=== PATIENT | male | born 1965 | race Two or more races ===

== ENCOUNTER 2020-05-20 09:40 | Outpatient (REF) | payer MEDICARE, MEDICAID, SELFPAY ==
[2020-05-20 10:53] LABS: Basophils Absolute Auto 0.1 X10*3/uL (0.0-0.2); Basophils Percent Auto 0.7 % (0-2); Eosinophils Absolute Auto 0.1 X10*3/uL (0.0-0.4); Eosinophils Percent Auto 1.8 % (0-4); Hematocrit 48.5 % (42-52); Hemoglobin 16.7 g/dl (14.0-18.0); Imm Gran Abs Auto 0.02 X10*3/uL (0.00-0.03); Imm Gran Pct Auto 0.3 % (0.0-0.4); MANUAL DIFF FLAG NO; Mean Corpuscular HGB Conc 34.4 g/dl (31.0-36.0); Mean Corpuscular Hemoglobin 31.9 pg (27.0-33.0); Mean Corpuscular Volume 92.7 fL (80-98); Mean Platelet Volume 8.4 fL (9.4-12.4); Monocytes Absolute Auto 0.8 X10*3/uL (0.1-1.2); Monocytes Percent Auto 10.5 % (2-11); Neutrophils Absolute Auto 4.3 X10*3/uL (2.0-8.3); Neutrophils Percent Auto 59.7 % (45-73); Platelet Count 320 X10*3/uL (160-400); Red Blood Count 5.23 X10*6/uL (4.60-5.80); Red Cell Distribution Width 11.9 % (11.0-16.0); White Blood Count 7.2 X10*3/uL (4.8-10.8)
[2020-05-20 11:23] LABS: Alanine Aminotransferase 49 U/L (0-40); Albumin Level 4.3 g/dL (3.5-5.0); Alkaline Phosphatase 65 U/L (39-117); Anion Gap 11 (12-20); Aspartate Amino Transferase 15 U/L (5-37); Bilirubin Total 1.6 mg/dL (0.0-1.0); Blood Urea Nitrogen 13 mg/dL (9-16); Calcium 9.2 mg/dL (8.4-10.2); Carbon Dioxide 28 mmol/L (22-29); Chloride 103 mmol/L (96-108); Cholesterol 214 mg/dL; Estimated Glomerular Filt Rate > 60; Glucose Fasting 93 mg/dL (60-99); HDL Cholesterol 41 mg/dL; LDL Cholesterol Calculated 147 mg/dl; Potassium 5.1 mmol/l (3.3-5.1); Sodium 137 mmol/L (135-145); Total Protein 7.4 g/dL (6.5-8.0); Triglycerides 132 mg/dL
== END 2020-05-20 09:41 | disposition home or self-care (01) ==
LOC: HO.LAB 09:40
PROVIDERS: Visit Provider Internal Medicine Medical Oncology
DX: E78.2 Mixed hyperlipidemia (principal); I10 Essential (primary) hypertension; E66.9 Obesity, unspecified
CPT/HCPCS: 36415; 80053; 80061; 85025

== ENCOUNTER 2021-10-20 11:28 | Emergency (ER) | payer MEDICARE, MEDICAID, SELFPAY ==
[2021-10-20 12:06] VITALS: BP 133/82; PULSE 67; RESP 18; TEMP 36.2; O2SAT 96; BMI 33.6
[2021-10-20] MEDS: Lidocaine HCl 1 % MPF 5 ML VIAL SUBCUT (13:10)
--- NOTE | 2021-10-20 14:23 | ED.EXTPRO ---
HPI - Extremity Problem General Chief complaint: Extremity Injury, Upper Stated complaint: Thumb lac Time Seen by Provider: 10/20/21 12:22 Source: patient Mode of arrival: ambulatory History of Present Illness HPI Narrative: 55-year-old male no significant past medical history presenting to the ED complaining of laceration to left thumb s/p cutting sheet rock with Creel Cleaner knife 1 hour [employer]. Tetanus out of date. Denies taking anticoagulation. Denies injury to the area, numbness, tingling, weakness, fever MD Complaint: extremity pain Onset (ago): hour(s) Pain Consistency: constant Related Data Allergies Allergy/AdvReac Type Severity Reaction Status Date / Time No Known Allergies Allergy Verified 10/20/21 12:06 Review of Systems Review of Systems: Constitutional: No Fever, No Chills ENT/Mouth: No Ear Pain, No Nasal Congestion, No Sinus Pain, No Hoarseness, No sore throat, No Rhinorrhea, No Swallowing Difficulty Cardiovascular: No Chest Pain, No SOB Respiratory: No Cough, No Sputum Gastrointestinal: No Nausea, No Vomiting, No Diarrhea, No Constipation, No Abdominal pain Genitourinary:, No Dysuria, No Urinary Frequency Musculoskeletal: + joint pain, No Myalgias, No Joint Swelling Skin: + Skin Lesions, No rash Neuro: No Weakness, No Numbness, No Paresthesias Yes all other systems are reviewed and are negative [facility] Past Medical History Attestation statement: The following information was validated with the patient. Social History Social History Advance Directives: No Advance Directives Information Provided: No Physical Exam Vital Signs: Vital Signs: Last Vital Signs Temp 97.1 F 10/20/21 12:06 Pulse 67 10/20/21 12:06 Resp 18 10/20/21 12:06 BP 133/82 10/20/21 12:06 Pulse Ox 96 10/20/21 12:06 BMI result Body Mass Index 33.6 Const: General: cooperative, healthy appearing and no acute distress Orientation/consciousness: patient oriented x3 Limitations: no limitations HEENT: Head: Yes normal to inspection and Yes atraumatic Ears: hearing grossly normal bilaterally General nose exam: Normal external nose present Face and sinus: Yes normal facial exam Eyes: General: appearance normal, both eyes and all related structures EOM: EOMs intact bilaterally Neck: Neck: Yes normal visual inspection and Yes no meningeal signs Resp: Effort & Inspection: normal respiratory effort and no respiratory distress Cardio: Rate: regular rate Peripheral pulses: radial pulses present and ulnar radial pulses present Skin: Other: 1.5cm laceration to left distal 5th digit lateral aspect. No nail involvement. Full range of motion intact. NV intact. Cap refill WNL Rashes: no rashes Neuro: General: patient oriented x3, tone normal and no meningeal signs Gait exam (Neuro): Normal gait present Extrem: General: Yes normal to inspection MDM - Extremity (Nontraumatic) MDM Narrative Medical decision making narrative: 55-year-old male no significant past medical history presenting to the ED complaining of laceration to left thumb s/p cutting sheet rock with Creel Cleaner knife 1 hour [employer]INTE[employer]. On exam vital signs stable, NAD/nontoxic, physical exam as above. Will repair laceration and update tetanus Medical Records Attestation: I reviewed the patient's medical records. Lab Data Attestation: I reviewed the patient's lab results. Procedures Laceration Laceration 1: Site: hand Side (If applicable): left Size (cm): 1.5 Description: linear Depth: simple, single layer Local Anesthetic: lidocaine 1% and other anesthetic (Digital block) Amount of anesthesia used (mL): 5 Pre-repair: wound explored and irrigated extensively Skin layer closed with: nylon Size (cm): 4-0 Number of sutures: 6 Technique: simple, interrupted Discharge Plan Discharge Clinical Impression: Finger laceration Patient Disposition: Home, Self-Care Instructions: Finger Laceration (ED) Additional Instructions: Return to any emergency department or urgent care in 7-10 days to have her sutures removed. Keep dry and clean. Apply bacitracin and or Neosporin If area begins look infected, is red, there is drainage from the area or you fever please return to the ED Your tetanus was updated today Referrals: Lisa Reynaga DO [Emergency Provider] - 1 week (Return to any emergency department or urgent care in 7-10 days to have her sutures removed) Interventions: ED Discharge Assessment Last Done: 10/20/21 15:18 Discharge Date/Time: 10/20/21 15:19
[2021-10-20] MEDS: Diphth,Pertus(ACell),Tet Adult 0.5 ML SYRINGE IM (15:07)
== END 2021-10-20 15:19 | disposition home or self-care (01) ==
PROVIDERS: Emergency Provider Emergency Medicine; PCP Internal Medicine Medical Oncology
DX: S61.012A Laceration without foreign body of left thumb without damage to nail, initial encounter (principal); S60.312A Abrasion of left thumb, initial encounter; W26.0XXA Contact with knife, initial encounter; Y93.9 Activity, unspecified; Y92.9 Unspecified place or not applicable; Y99.9 Unspecified external cause status
CPT/HCPCS: 12001; 90471; 90715; 99283; 99284

== ENCOUNTER 2023-01-07 08:47 | Outpatient (REF) | payer MEDICARE, MEDICAID, SELFPAY ==
[2023-01-07 08:59] LABS: MANUAL DIFF FLAG NO
[2023-01-07 09:34] LABS: Basophils Absolute Auto 0.1 X10*3/uL (0.0-0.2); Basophils Percent Auto 1.1 % (0-2); Eosinophils Absolute Auto 0.2 X10*3/uL (0.0-0.4); Eosinophils Percent Auto 2.4 % (0-4); Hematocrit 44.6 % (42.0-52.0); Hemoglobin 15.5 g/dl (14.0-18.0); Imm Gran Abs Auto 0.01 X10*3/uL (0.00-0.03); Imm Gran Pct Auto 0.2 % (0.0-0.4); Lymphocytes Absolute Auto 1.9 X10*3/uL (1.2-4.9); Mean Corpuscular HGB Conc 34.8 g/dl (31.0-36.0); Mean Corpuscular Hemoglobin 31.8 pg (27.0-33.0); Mean Corpuscular Volume 91.4 fL (80.0-98.0); Mean Platelet Volume 8.4 fL (9.4-12.4); Monocytes Absolute Auto 0.6 X10*3/uL (0.1-1.2); Neutrophils Absolute Auto 3.5 x10*3/uL (2.0-8.3); Neutrophils Percent Auto 56.3 % (45-73); Platelet Count 300 X10*3/uL (160-400); Red Blood Count 4.88 X10*6/uL (4.60-5.80); Red Cell Distribution Width 11.7 % (11.0-16.0); White Blood Count 6.2 X10*3/uL (4.8-10.8)
[2023-01-07 10:11] LABS: Alanine Aminotransferase 41 U/L (0-40); Albumin Level 4.2 g/dL (3.5-5.0); Alkaline Phosphatase 66 U/L (39-117); Anion Gap 10 (12-20); Aspartate Amino Transferase 12 U/L (5-37); Bilirubin Total 1.1 mg/dL (0.0-1.0); Blood Urea Nitrogen 11 mg/dL (9-16); Calcium 9.6 mg/dL (8.4-10.2); Carbon Dioxide 28 mmol/L (22-29); Chloride 106 mmol/L (96-108); Cholesterol 199 mg/dL; Estimated Glomerular Filt Rate > 60; Glucose Fasting 97 mg/dL (60-99); HDL Cholesterol 36 mg/dL; LDL Cholesterol Calculated 138 mg/dl; Potassium 4.5 mmol/L (3.3-5.1); Sodium 139 mmol/L (135-145); Total Protein 7.3 g/dL (6.5-8.0); Triglycerides 128 mg/dL
[2023-01-07 10:24] LABS: Prostate Specific Antigen 0.24 ng/mL (<0.05-4.0)
== END 2023-01-07 08:48 | disposition home or self-care (01) ==
LOC: HO.LAB 08:47
PROVIDERS: PCP Internal Medicine Medical Oncology; Visit Provider Internal Medicine Medical Oncology
DX: Z00.00 Encounter for general adult medical examination without abnormal findings (principal); Z12.5 Encounter for screening for malignant neoplasm of prostate; E78.2 Mixed hyperlipidemia; E66.9 Obesity, unspecified; I10 Essential (primary) hypertension
CPT/HCPCS: 36415; 80053; 80061; 84153; 85025

== ENCOUNTER → 2024-04-23 14:43 | Outpatient (REF) | payer OTHER, SELFPAY ==
--- NOTE | 2024-04-23 14:53 | HM_ITS ---
* Total monitoring time 7 days. * Underlying rhythm is sinus with an average rate of 63/Min. * Rare supraventricular ectopy. * Rare ventricular ectopy. One couplet. No significant runs. * No significant pauses or high-grade AV blocks. * No patient markers or diary events. MTDD
== END ==
LOC: HO.CARD 14:43
PROVIDERS: PCP Internal Medicine Medical Oncology; Visit Provider Internal Medicine Medical Oncology
DX: I48.0 Paroxysmal atrial fibrillation (principal)
CPT/HCPCS: 93242

== ENCOUNTER → 2024-04-23 14:53 | Outpatient (BNV) | payer OTHER, SELFPAY | PROVIDERS: PCP Internal Medicine Medical Oncology; Visit Provider Internal Medicine | DX: I47.10 Supraventricular tachycardia, unspecified (principal) | CPT/HCPCS: 93244 ==

== ENCOUNTER 2024-05-08 09:27 | Outpatient (AMB) | payer OTHER, SELFPAY ==
--- NOTE | 2024-05-08 09:28 | A.OFFVIS_ITS ---
Vital Signs 05/08/24 09:36 Height 5 ft 9 in Weight 230 lb BMI 34.0 BP 136/72 Blood Pressure Location Rt brachial Position Sitting Pulse 62 Intake Visit Reasons: Umbilical Hernia Intake Note: Patient referred by pcp Dr. Edge for umbilical hernia. Present for 13yrs. Patient c/o: bothersome when pressed on. Clinical Administrator Required: No Accompanied by: spouse Gisele Allergies No Known Allergies Allergy (Verified 05/08/24 09:33) HPI Comments Details: Patient presents for evaluation of a symptomatic enlarging umbilical hernia. He has had this for 20+ years time. His increasing in size. It was bothering him. He would like to have repaired. Otherwise patient tolerates his diet. He has regular bowel habits. He does moderate strenuous activities for employment. Chart was reviewed and patient evaluated [facility] Medical History (Updated 05/08/24 @ 09:34 by NESS Boyce) Appendicitis HTN (hypertension) Family History (Updated 05/08/24 @ 09:35 by NESS Boyce) Mother Lung cancer Social History (Updated 05/08/24 @ 09:36 by NESS Boyce) Alcohol intake: current Alcohol intake frequency: holidays/special occasions only Alcohol type: wine Patient Tobacco Use Status: Never used Tobacco Physical Exam Vital Signs: Last Vital Signs Pulse 62 05/08/24 09:36 BP 136/72 05/08/24 09:36 BMI result Body Mass Index 34.0 Chest Other: Chest breath sounds bilaterally, HS 1 in 2 GI Other: Patient was examined both supine and standing with Valsalva. Bilateral groin exam negative. Genitalia within normal limits. Abdomen moderately corpulent. Patient has roughly 3 cm irreducible umbilical hernia Assessment & Plan Assessment & Plan (1) Incarcerated umbilical hernia: Code(s): K42.0 - Umbilical hernia with obstruction, without gangrene Category: Surgical Plan Risks, benefits, and alternatives of open umbilical hernia repair with mesh were reviewed with the patient and included but not limited to bleeding, infection, recurrence, numbness, pain, scarring , bowel injury and the patient wishes to proceed. All questions answered. Arrangements were made for this. Coding Level of Care Code New Pt Level 5 (29132) Diagnoses Incarcerated umbilical hernia K42.0
[2024-05-08 09:36] VITALS: BP 136/72; PULSE 62; BMI 34.0
== END 2024-05-08 09:47 | disposition home or self-care (01) ==
PROVIDERS: PCP Internal Medicine Medical Oncology; Referring Provider Internal Medicine Medical Oncology; Visit Provider Surgery
DX: K42.0 Umbilical hernia with obstruction, without gangrene (principal)
CPT/HCPCS: 99204

== ENCOUNTER → 2024-05-08 09:27 | Outpatient (BNVA) | payer OTHER, SELFPAY | PROVIDERS: PCP Internal Medicine Medical Oncology; Referring Provider Internal Medicine Medical Oncology; Visit Provider Surgery | DX: K42.0 Umbilical hernia with obstruction, without gangrene (principal) | CPT/HCPCS: 99202 ==

== ENCOUNTER → 2024-06-07 09:43 | Outpatient (REF) | payer MEDICARE, MEDICAID, SELFPAY ==
--- OUTSIDE RECORDS SUMMARY | 2024-06-07 09:51 | XMS_ITS ---
Author Organization Byron Edge III, MD Address [address] [place] [address] Care Team Providers Care Enterprise Resource Analyst Name Role Phone Byron Edge Primary Care Provider Allergies Allergen (clinical drug ingredient) Drug/Non Drug Allergy documented on EMR Reaction Allergy Type Onset Date Status No Known Drug Allergy Unknown Drug Allergy Active Results Component Value Reference Range Notes URINE DIP STICK Reviewed date:04/18/2024 03:43:39 PM Interpretation: Performing Lab: Notes/Report: SG 1.020 1.005 - 1.025 pH 6.0 5.0 - 9.0 SHILO Negative Negative - NIT negative Negative - PRO 15 Negative - Trace GLU Negative Negative - KET 5 Negative - UBG 0.2 0.1 - 1.8 ANSON Negative 0.2 - 1.3 BLD Negative Negative - Reason For Referral Reason umbilical hernia Diagnosis 1 Umbilical hernia wit hout obstruction and without gangrene (K42.9) Referral Organization Byron Edge III, MD Referring Provider First Name Byron Referring Provider Last Name Kely Referring Provider Speciality Internal M edicine Referred Provider Jay Jay Juarez Referred Provider Specialty Thoracic Maryellen ayaan General Notes Crissy Bowie CMA 04/26 10:38:51 AM >ref/demo/progress note faxed to Dr Cancino office, Crissy Bowie CMA 05/03/2024 02:59:14 PM >called Dr Cancino office they stated pt has appt with Dr Juarez on 05/08/2024 Referral Priority Routine Referral Appointment Date 05/08/2024 REASON FOR VISIT Annual Exam Medications Medication SIG (Take, Route, Frequency, Duration) Notes Start Date End Date Status Metoprolol Succinate ER 100 MG 1 1/2 tablet Orally Once a day Active Ibuprofen 600 MG TAKE 1 TABLET BY ARISTEO TH THREE TIMES DAILY WITH FOOD OR MILK NEEDED Active Social History Tobacco Use: Social History Observation Description Date Details (start date - stop date) Never Smoker NA - NA Sex Assigned At : Social History Observation Description Sex Assigned At Male Tobacco Use/Smoking Question Answer Notes Patient is a nonsmoker Additional Findings: Tobacco Non-User Aggressive non-smoker Tobacco Control (Standard) Question Answer Notes Tobacco use: Nonsmoker Additional Findings: Tobacco non-user Aggressive nonsmoker AUDIT-C (Standard) Question Answer Notes Did you have a drink contain ing alcohol in the past year? Yes How often did you have six o r more drinks on one occasion in the past year? Less than monthly (1 point) How many drinks did you have on a typical day when you were drinking in the past year? 1 or 2 drinks (0 point) How often did you have a dri nk containing alcohol in the past year? Never (0 point) Points 1 Interpretation Negative Vital Signs Temperature 97.8 degrees Fahrenheit 04/18/20 24 Blood pressure systolic 139 mm Hg 04/18/20 24 Blood pressure diastolic 84 mm Hg 024 Heart Rate 62 /min 04/18/2024 Height 68 in 04/18/2024 Weight 230 lbs 04/18/2024 BMI 34.97 kg/m2 04/18/2024 Encounters Encounter Location Date Provider Diagnosis Byron Edge III, MD [address] [place] [address] [place] [address] 04/18/2024 Byron Edge Paroxysmal atrial fibrillation I48.0 ; Mixed hyperlipidemia E78.2 ; Obesity (BMI 30-39.9) E66.9 ; GERD without esophagitis K21.9 ; History of depression Z86.59 ; Umbilical hernia without obstruction and without gangrene K42.9 ; Migraine without aura and without status migrainosus, not intractable G43.009 and Hypertension I10 Assessments Encounter Date Diagnosis (ICD Code) Assessment Notes Treat ment Notes Treatment Clinical Notes 04/18/2024 Paroxysmal atrial fibrillation (ICD-10 - I48.0) He has a history of paroxysmal atrial fibrillation. He is in regular sinus rhythm today. He and his have noted episodes of tachycardia mostly at night. I have ordered a Holter monitor to determine the rhythm night. 04/18/2024 Mixed hyperlipidemia (ICD-10 - E78.2) His lipids have been stable. Comprehensive blood work with a fasting lipid profile was ordered today. 04/18/2024 Obesity (BMI 30-39.9 ) (ICD-10 - E66.9) He has lost a couple of pounds. His weight is stable. We discussed his weight loss strategy. We made a plan to lose weight at a rate of one half of a pound per week. 04/18/2024 GERD without esophagitis (ICD-10 - K21.9) His reflux is well controlled with syxj-djr-jhasinc medications and no change in his regimen is necessary. 04/18/2024 History of depressio n (ICD-10 - Z86.59) He will be monitored carefully for recurrent depression. Currently, he is doing well. 04/18/2024 Umbilical hernia without obstruction and without gangrene (ICD-10 - K42.9) This is a small problem and is asymptomatic at this time. Observation will be sufficient. 04/18/2024 Migraine without aur a and without status migrainosus, not intractable (ICD-10 - G43.009) He has infrequent migraines and none recently. He will be observed. 04/18/2024 Hypertension (ICD-10 - I10) His blood pressure is stable at the upper limits of normal. I recommended aggressive weight loss and sodium restriction and regular physical activity. He was given an appointment to return to the office to measure his vital signs. Plan Of Treatment Medication Medication Name Sig Start Date Stop Date Notes Metoprolol Succinate ER 100 MG 1 /2 tab let Orally Once a day Ibuprofen 600 MG TAKE 1 TABLET BY THREE TIMES DAILY WITH FOOD OR MILK NEEDED Pending Test Test Name Order Date PROFILE, FASTING (COMPREHENSIVE METABOLI C) 04/18/2024 TSH (THYROID STIMULATING HORMONE) 2023 PSA, TOTAL 04/18/2024 CBC WITH AUTO DIFF 04/18/2024 Lipid Panel 04/18/2024 Free T4 (Free Thyroxine) 04/18/2024 ECG 7 day holter monitor 04/18/2024 Referrals Referral Date Details 04/18/2024 04/18/2024, umbilica l hernia, Jay Jay Larry Next Appt Details Follow Up: 4 Weeks, Reason: Office visit Provider Name:Byron Edge, 09/27/2024 09:15:00 AM, [address], [place], [address], Provider Name:Byron Edge, 04/22/2025 02:00:00 PM, [address], [place], [address], Progress Notes * Carlito BLACK ADOB:1965 (58 yo M)Acc No.[id number]:04/18/2024 Progress Notes Patient:?Carlito BLACK A Provider:?Byron Edge MD :1965???Age:58 Y???Sex:Male Anthony e:04/18/2024 Address:[address] [place] [address], [facility] [address], [id number] Subjective: * Chief Complaints: * ???Annual Exam * HPI: ???Depression Screening:?PHQ-9?Little interest or pleasure in doing things?Not at all ?Feeling down, depressed, or hopeless?Not at all ?Trouble falling or staying asleep, or sleeping too much?Not at all ?Feeling tired or having little energy?Nearly every day ?Poor appetite or overeating?Not at all ?Feeling bad about yourself or that you are a failure, or have let yourself or your family down?Not at all ?Trouble concentrating on things, such as reading the newspaper or watching television?Several days ?Moving or speaking so slowly that other people could have noticed; or the opposite, being so fidgety or restless that you have been moving around a lot more than usual?Not at all ?Thoughts that you would be better off or of hurting yourself in some way?Not at all ?Total Score?4 ?Interpretation?Minimal Depression ???COVID-19 Screening:?Questions?Have you experienced fever, chills, cough, sore throat, shortness of breath, difficulty breathing, muscle aches, loss of taste or smell??No ?Have you been exposed to the virus within the last 10 days??No ?Have you travelled internationally in the last 10 days??No ?Have you been exposed to COVID-19 in the past??Yes ???SDOH Questions:?SDOH Questions?In the past year have you been worried about losing your housing??No ?In the past year have you or any family members you live with been unable to get any of the following when it was really needed? Check all that apply:?None ???:?The 58-year-old male patient reported experiencing an abnormal heartbeat and a fast heart rate, which was measured to be between 96 and 135 beats per minute. This was observed by his using a pulse oximeter. The patient also mentioned that he woke up due to his heart beating fast, a symptom he last experienced in 2003.Neither he nor his are able to tell if the heart rhythm was irregular. I have ordered a Holter monitor to evaluate this. He also reported a tendency to cough a lot and feeling a bit wheezy at times, which he suspects might be due to asthma. However, he has not sought treatment for this as it is not a chronic issue. * ROS:?General/Constitutional:?pain?The right elbow pain has resolved.?Chills?denies.?Fatigue?admits.?Fever?denies.?Allergy/Immunology:?Admits?Cough,?is non-productive.?ENT:?Decreased hearing?denies.?Respiratory:?Cough?denies.?Cardiovascular:?Chest pain with exertion?denies.?Dyspnea on exertion?denies.?Shortness of breath?denies.?Gastrointestinal:?Constipation?occasional.?Decreased appetite?denies.?Diarrhea?denies.?Heartburn?denies.?Nausea?denies.?Rectal bleeding?denies.?Vomiting?denies.?Hematology:?bruising?denies.?petechiae?denies.?Swollen glands?none have been noted.?Genitourinary:?Frequent urination?once a night.?Musculoskeletal:?Muscle aches?denies.?Painful joints?denies.?Sciatica?denies.?Weakness?denies.?Skin:?Itching?denies.?Rash?denies.?Skin lesion(s)?denies.?Neurologic:?Difficulty speaking?denies.?Dizziness?denies.?Headache?denies.?Low back pain?denies.?Psychiatric:?Depressed mood?denies.? * Medical History:? * Surgical History:?appendecto my, [facility] 2000No history * Hospitalization/Major Diagno stic Procedure:?No history * Family History:?Father: dece ased 47 yrs, Alcoholism, heart disease, diabetes, hypertension, myocardial infarction.?Mother: 76 yrs, Diabetes, osteoporosis, lung cancer.?3 brother(s) , 2 sister(s) . 2 son(s) , 2 daughter(s) - healthy. .? His 3 brothers are healthy and well. One of his sisters has a renal cancer. He has 4 healthy children from her first marriage. A maternal grandmother has diabetes. A paternal uncle has diabetes and heart disease at the age of 50. A paternal aunt. Coronary artery disease. A maternal aunt had breast cancer. * Social History:?Tobacco Use:?Tobacco Use/Smoking?Patient is a?nonsmoker ?Additional Findings: Tobacco Non-User?Aggressive non-smoker ?Tobacco Control (Standard)?Tobacco use:?Nonsmoker ?Additional Findings: Tobacco non-user?Aggressive nonsmoker ???Drugs/Alcohol:?Drugs?Have you used drugs other than those for medical reasons in the past 12 months??No ???Drug/Alcohol:?AUDIT-C (Standard)?Did you have a drink containing alcohol in the past year??Yes ?How often did you have six or more drinks on one occasion in the past year??Less than monthly (1 point) ?How many drinks did you have on a typical day when you were drinking in the past year??1 or 2 drinks (0 point) ?How often did you have a drink containing alcohol in the past year??Never (0 point) ?Points?1 ?Interpretation?Negative ???He was born in [place]. He is and has 4 children from a first marriage. He has been to [facility] for 5 years. They have one son 3 years old, Laron. He is trying to become disabled. He is not working at this time. * Medications:?TakingMetoprolo l Succinate ER 100 MG Tablet Extended Release 24 Hour 1 1/2 tablet Orally Once a day Ibuprofen 600 MG Tablet TAKE 1 TABLET BY MOUTH THREE TIMES DAILY WITH FOOD OR MILK NEEDED Medication List reviewed and reconciled with the patientTaking Metoprolol Succinate ER 100 MG Tablet Extended Release 24 Hour 1 1/2 tablet Orally Once a day Taking Ibuprofen 600 MG Tablet TAKE 1 TABLET BY MOUTH THREE TIMES DAILY WITH FOOD OR MILK NEEDED Medication List reviewed and reconciled with the patient * Allergies:?No Known Drug All ergyno[Allergies Verified] Objective: * Vitals:?Ht: 68, Wt: 230, BMI :34.97, BP: 139/84, HR: 62, Temp: 97.8, Wt-k.33. * Examination: ???General Examination: ?GENERAL APPEARANCE:?pleasant, well nourished, well developed, in no acute distress, calm and relaxed, obese, man.?HEAD:?atraumatic, normocephalic.?EYES:?eomi, perrla, anicteric, conjugate.?EARS:?normal.?NOSE:?septum intact.?ORAL CAVITY:?normal, unremarkable.?NECK/THYROID:?no jugular venous distention, no carotid bruit, thyroid normal.?LYMPH NODES:?no enlarged lymph nodes,spleen normal.?SKIN:?no suspicious lesions, anicteric.?HEART:?no clicks, gallops, murmurs, or rubs, regular rhythm, S1, S2 normal, no s3, or vascular bruits.?LUNGS:?clear to auscultation .?BREASTS:??no masses palpable bilaterally.?ABDOMEN:?bowel sounds normal, no ascites, no organomegaly, no mass, centripital obesity.?RECTAL EXAM:?not examined.?MUSCULOSKELETAL:?extremities unremarkable, no clubbing, cyanosis or edema, Normal range of motion in both elbows.?PERIPHERAL PULSES:?normal.?NEUROLOGIC:?alert and oriented, cranial nerves 2-12 grossly intact, deep tendon reflexes 2+ symmetrical, motor strength normal upper and lower extremities, sensory exam intact.?PSYCH:?alert, oriented, mood depressed.? Assessment: * Assessment: 1.?Paroxysmal atrial fibrill ation - I48.0 (Primary)???Notes :He has a history of paroxysmal atrial fibrillation.? He is in regular sinus rhythm today.? He and his have noted episodes of tachycardia mostly at night.? I have ordered a Holter monitor to determine the rhythm night.???2.?Mixed hyperlipidemia - E78.2???Notes :His lipids have been stable.? Comprehensive blood work with a fasting lipid profile was ordered today.???3.?Obesity (BMI 30-39.9) - E66.9???Notes :He has lost a couple of pounds.? His weight is stable.? We discussed his weight loss strategy.? We made a plan to lose weight at a rate of one half of a pound per week.???4.?GERD without esophagitis - K21.9???Notes :His reflux is well controlled with kddf-rrk-lfzykll medications and no change in his regimen is necessary.???5.?History of depression - Z86.59???Notes :He will be monitored carefully for recurrent depression. Currently, he is doing well.???6.?Umbilical hernia without obstruction and without gangrene - K42.9???Notes :This is a small problem and is asymptomatic at this time. Observation will be sufficient.???7.?Migraine without aura and without status migrainosus, not intractable - G43.009???Notes :He has infrequent migraines and none recently. He will be observed.???8.?Hypertension - I10???Notes :His blood pressure is stable at the upper limits of normal. I recommended aggressive weight loss and sodium restriction and regular physical activity. He was given an appointment to return to the office to measure his vital signs.??? Plan: * Treatment: 2.?Mixed hyperlipidemia?LAB: PROFILE, FASTING (COMPREHENSIVE METABOLIC) ?LAB: TSH (THYROID STIMULATING HORMONE) ?LAB: PSA, TOTAL ?LAB: CBC WITH AUTO DIFF ?LAB: Lipid Panel ?LAB: Free T4 (Free Thyroxine) 3.?Obesity (BMI 30-39.9)?LAB: PROFILE, FASTING (COMPREHENSIVE METABOLIC) ?LAB: TSH (THYROID STIMULATING HORMONE) ?LAB: PSA, TOTAL ?LAB: CBC WITH AUTO DIFF ?LAB: Lipid Panel ?LAB: Free T4 (Free Thyroxine) 4.?Umbilical hernia without obstruction and without gangrene? Referral To:Luis E Cancino??General Surgery ?Reason:umbilical hernia 5.?Others? Continue Ibuprofen Tablet, 600 MG, TAKE 1 TABLET BY MOUTH THREE TIMES DAILY WITH FOOD OR MILK NEEDED;?Continue Metoprolol Succinate ER Tablet Extended Release 24 Hour, 100 MG, 1 1/2 tablet, Orally, Once a day.?? * Labs:? * ?Lab: URINE DIP STICK (C ollection Date & Time - 04/18/2024) ? Value Reference Range ?SG 1.020 1.005 - 1.025 * ?pH 6.0 5.0 - 9.0 * ?SHILO Negative Negative - * ?NIT negative Negative - * ?PRO 15 Negative - Trac e * ?GLU Negative Negative - * ?KET 5 Negative - * ?UBG 0.2 0.1 - 1.8 * ?ANSON Negative 0.2 - 1.3 * ?BLD Negative Negative - * Procedure Codes:?35923 URINE -NO MICRO * Preventive Medicine:? ??Counseling:?Care goal follow-up plan:?Counseling for abnormal BMI given?Yes ?Above Normal BMI Follow-up?Dietary management education, guidance, and counseling, Dietary needs education, Exercise promotion: strength training, Exercise promotion: stretching, Feeding regime, Giving encouragement to exercise, Lifestyle education regarding diet, Nutrition / feeding management, Nutrition therapy, Prescribed activity/exercise education, Prescribed diet education, Prescribed dietary intake, Special diet education, Weight monitoring , Intervention, Order not done: Medical or Other reason not done * Follow Up:?4 Weeks (Reason: Office visit) * Images: * Sign off status: Completed true * Provider:?Byron Edge MD Date:?03/22 Generated for Ninii porsha/Danika/Linhsmitting on:?06/07/2024 09:51 AM EST History and Physical Notes * HPI (History of Present Illness) Category Sub-Category Detail Notes Depression Screening PHQ-9 Little inte rest or pleasure in doing things: Not at all Feeling down, depressed, or hopeless: No t at all Trouble falling or staying asleep, or sl eeping too much: Not at all Feeling tired or having little energy: N early every day Poor appetite or overeating: Not at all Feeling bad about yourself o r that you are a failure, or have let yourself or your family down: Not at all Trouble concentrating on thi ngs, such as reading the newspaper or watching television: Several days Moving or speaking so slowly that other people could have noticed; or the opposite, being so fidgety or restless that you have been moving around a lot more than usual: Not at all Thoughts that you would be b marizol off or of hurting yourself in some way: Not at all Total Score: 4 Interpretation: Minimal Depression COVID-19 Screening Questions Have you had any new onset fever, chills, cough, congestion, sore throat, shortness of breath, muscle aches?: No Have you been exposed to the virus withi n the last 10 days?: No Have you travelled internationally in e last 10 days?: No Have you been exposed to COVID-19 in the past?: Yes SDOH Questions SDOH Questions In the past year have you been worried about losing your housing?: No In the past year have you or any family members you live with been unable to get any of the following when it was really needed? Check all that apply:: None Examination Category Sub-Category Detail Notes General Examination GENERAL APPEARANCE: pleasant , well nourished, well developed, in no acute distress, calm and relaxed, obese, man HEAD: atraumatic, normocep halic EYES: eomi, perrla, anicte rigoberto, conjugate EARS: normal NOSE: septum intact NECK/THYROID: no jugular venous di stention, no carotid bruit, thyroid normal HEART: no clicks, gallops, murmurs, or rubs, regular rhythm, S1, S2 normal, no s3, or vascular bruits LUNGS: clear to auscultatio n ABDOMEN: bowel sounds normal, no ascites, no organomegaly, no mass, centripital obesity NEUROLOGIC: alert and oriented, cranial nerves 2-12 grossly intact, deep tendon reflexes 2+ symmetrical, motor strength normal upper and lower extremities, sensory exam intact SKIN: no suspicious lesion s, anicteric PERIPHERAL PULSES: normal BREASTS: no masses palpable b ilaterally MUSCULOSKELETAL: extremities unremark able, no clubbing, cyanosis or edema, Normal range of motion in both elbows LYMPH NODES: no enlarged lymph no sanju,spleen normal RECTAL EXAM: not examined PSYCH: alert, oriented, moo d depressed ORAL CAVITY: normal, unremarkable Consultation Request Notes Referral Date Referring Provider Referred Provider Not lynn 04/18/2024 Byron Edge Pasquale umbilical h ernia
--- OUTSIDE RECORDS SUMMARY | 2024-06-07 09:51 | XMS_ITS ---
Author Organization Byron Edge III, MD Address [address] [place] [address] Care Team Providers Care Candy Separator Hard Name Role Phone Byron Edge Primary Care Provider [phone] Allergies Allergen (clinical drug ingredient) Drug/Non Drug Allergy documented on EMR Reaction Allergy Type Onset Date Status No Known Drug Allergy Unknown Drug Allergy Active REASON FOR VISIT Pre-Op Medications Medication SIG (Take, Route, Frequency, Duration) Notes Start Date End Date Status Ibuprofen 600 MG TAKE 1 TABLET BY ARISTEO TH THREE TIMES DAILY WITH FOOD OR MILK NEEDED Active Metoprolol Succinate ER 100 MG TAKE 1 AND 1/2 TABLETS BY MOUTH EVERY DAY Active Social History Tobacco Use: Social History Observation Description Date Details (start date - stop date) Never Smoker NA - NA Sex Assigned At : Social History Observation Description Sex Assigned At Male Tobacco Use/Smoking Question Answer Notes Patient is a nonsmoker Additional Findings: Tobacco Non-User Aggressive non-smoker Tobacco Control (Standard) Question Answer Notes Tobacco use: Nonsmoker Additional Findings: Tobacco non-user Aggressive nonsmoker Encounters Encounter Location Date Provider Diagnosis Byron Edge III, MD [address] [place] [address] [facility] [place] [address] 06/04/2024 Byron Edge Plan Of Treatment Medication Medication Name Sig Start Date Stop Date Notes Ibuprofen 600 MG TAKE 1 TABLET BY ARISTEO TH THREE TIMES DAILY WITH FOOD OR MILK NEEDED Metoprolol Succinate ER 100 MG TAKE 1 AN D 1/2 TABLETS BY MOUTH EVERY DAY Next Appt Details Provider Name:Byron Edge, 09/27/2024 09:15:00 AM, [address] [facility], [address], Provider Name:Byron Edge, 04/22/2025 02:00:00 PM, [address], [place], [address], Progress Notes * Carlito BLACK ADOB:1965 (58 yo M)Acc No.[id number]:06/04/2024 Patient:?Carlito BLACK Provider:?Byron Edge MD :1965???Age:58 Y???Sex:Male Anthony e:06/04/2024 Address:[address] [place] [address], [address], [id number] Subjective: * Chief Complaints: * ???1. Pre-Op. * HPI: ???COVID-19 Screening:?Questions?Have you had any new onset fever, chills, cough, congestion, sore throat, shortness of breath, muscle aches??No * ROS:?General/Constitutional:?pain?only normal aches and pains.?Chills?denies.?Fatigue?admits.?Fever?denies.?ENT:?Decreased hearing?denies.?Respiratory:?Cough?denies.?Cardiovascular:?Chest pain with exertion?denies.?Dyspnea on exertion?denies.?Shortness of breath?denies.?Gastrointestinal:?Constipation?denies.?Decreased appetite?denies.?Diarrhea?denies.?Heartburn?denies.?Nausea?denies.?Rectal bleeding?denies.?Vomiting?denies.?Hematology:?bruising?denies.?petechiae?denies.?Swollen glands?none have been noted.?Genitourinary:?Frequent urination?denies.?Musculoskeletal:?Muscle aches?denies.?Painful joints?denies.?Sciatica?denies.?Weakness?denies.?Skin:?Itching?denies.?Rash?denies.?Skin lesion(s)?denies.?Neurologic:?Difficulty speaking?denies.?Dizziness?denies.?Headache?denies.?Low back pain?denies.?Psychiatric:?Depressed mood?denies.? * Medical History:?Hyperlipide julita, Hypertension, GERD, Depression, Migraine, Arthralgias, ED, Paroxysmal atrial fibrillation. 2011, Obesity, Umbilical hernia, GERD, The patient had a colonoscopy in 2019 and his exam was normal. He had controlled heartburn and hadn't had many migraines. He also had a small hernia that was not causing any issues. He lost 5 lbs.. * Surgical History:?appendecto my, [facility] 2000, No history . * Hospitalization/Major Diagno stic Procedure:?No history . * Family History:?Father: dece ased 47 yrs, [...] (Standard)?Tobacco use:?Nonsmoker ?Additional Findings: Tobacco non-user?Aggressive nonsmoker ???He was born in [place]. He is and has 4 children from a first marriage. He has been to [facility] for 5 years. They have one son 3 years old, Laron. He is trying to become disabled. He is not working at this time. * Medications:?Taking Ibuprofe n 600 MG Tablet TAKE 1 TABLET BY MOUTH THREE TIMES DAILY WITH FOOD OR MILK NEEDED , Taking Metoprolol Succinate ER 100 MG Tablet Extended Release 24 Hour TAKE 1 AND 1/2 TABLETS BY MOUTH EVERY DAY , Medication List reviewed and reconciled with the patient * Allergies:?No Known Drug All ergy. Objective: * Vitals:? * Examination: ???General Examination: ?GENERAL APPEARANCE:?pleasant, well nourished, well developed, in no acute distress, calm and relaxed.?HEAD:?atraumatic, normocephalic.?EYES:?eomi, perrla, anicteric, conjugate.?EARS:?normal.?NOSE:?septum intact.?ORAL CAVITY:?normal, unremarkable.?NECK/THYROID:?no jugular venous distention, no carotid bruit, thyroid normal.?LYMPH NODES:?no enlarged lymph nodes,spleen normal.?SKIN:?no suspicious lesions, anicteric.?HEART:?no clicks, gallops, murmurs, or rubs, regular rhythm, S1, S2 normal, no s3, or vascular bruits.?LUNGS:?clear to auscultation .?BREASTS:??no masses palpable bilaterally.?ABDOMEN:?bowel sounds normal, no ascites, no organomegaly, no mass.?RECTAL EXAM:?not examined.?MUSCULOSKELETAL:?extremities unremarkable, no clubbing, cyanosis or edema.?PERIPHERAL PULSES:?normal.?NEUROLOGIC:?alert and oriented, cranial nerves 2-12 grossly intact, deep tendon reflexes 2+ symmetrical, motor strength normal upper and lower extremities, sensory exam intact.?PSYCH:?alert, oriented.? Assessment: Plan: * Treatment: * Images: * The named appointment provid er may or may not be the originator of this progress note, and it is not deemed complete until electronically signed by the appointment provider. Sign off status: Pending * Provider:?Byron Edge MD Date:?05/20 Generated for Aurelia story/Danika/Linhsmitting on:?06/07/2024 09:51 AM EST History and Physical Notes * HPI (History of Present Illness) Category Sub-Category Detail Notes COVID-19 Screening Questions Have you had any new onset fever, chills, cough, congestion, sore throat, shortness of breath, muscle aches?: No Examination Category Sub-Category Detail Notes General Examination GENERAL APPEARANCE: pleasant , well nourished, well developed, in no acute distress, calm and relaxed HEAD: atraumatic, normocep halic EYES: eomi, perrla, anicte rigoberto, conjugate EARS: normal NOSE: septum intact NECK/THYROID: no jugular venous di stention, no carotid bruit, thyroid normal HEART: no clicks, gallops, murmurs, or rubs, regular rhythm, S1, S2 normal, no s3, or vascular bruits LUNGS: clear to auscultatio n ABDOMEN: bowel sounds normal, no ascites, no organomegaly, no mass NEUROLOGIC: alert and oriented, cranial nerves 2-12 grossly intact, deep tendon reflexes 2+ symmetrical, motor strength normal upper and lower extremities, sensory exam intact SKIN: no suspicious lesion s, anicteric PERIPHERAL PULSES: normal BREASTS: no masses palpable b ilaterally MUSCULOSKELETAL: extremities unremark able, no clubbing, cyanosis or edema LYMPH NODES: no enlarged lymph no sanju,spleen normal RECTAL EXAM: not examined PSYCH: alert, oriented ORAL CAVITY: normal, unremarkable
--- OUTSIDE RECORDS SUMMARY | 2024-06-07 09:51 | XMS_ITS ---
Author Organization Byron Edge III, MD Address [address] [place] [address] Care Team Providers Care Refund Specialist Name Role Phone Byron Edge Primary Care Provider Allergies Allergen (clinical drug ingredient) Drug/Non Drug Allergy documented on EMR Reaction Allergy Type Onset Date Status No Known Drug Allergy Unknown Drug Allergy Active REASON FOR VISIT Clearance for Umbilical Hernia removal Medications Medication SIG (Take, Route, Frequency, Duration) Notes Start Date End Date Status Metoprolol Succinate ER 100 MG TAKE 1 AND 1/2 TABLETS BY MOUTH EVERY DAY Active Ibuprofen 600 MG TAKE 1 TABLET [...] Nonsmoker Additional Findings: Tobacco non-user Aggressive nonsmoker Vital Signs Temperature 96.7 degrees Fahrenheit 06/07/20 24 Blood pressure systolic 149 mm Hg 06/07/20 24 Blood pressure diastolic 87 mm Hg 024 Heart Rate 60 /min 06/07/2024 Height 68 in 06/07/2024 Weight 233 lbs 06/07/2024 BMI 35.42 kg/m2 06/07/2024 Oximetry 97 % 06/07/2024 Encounters Encounter Location Date Provider Diagnosis Byron Edge III, MD [address] [place] [address] [place] [address] 06/07/2024 Byron Edge Hypertension I10 ; Obesity (BMI 30-39.9) E66.9 and Paroxysmal atrial fibrillation I48.0 Assessments Encounter Date Diagnosis (ICD Code) Assessment Notes Treat ment Notes Treatment Clinical Notes 06/07/2024 Hypertension (ICD-10 - I10) 06/07/2024 Obesity (BMI 30-39.9) (ICD-10 - E66.9) 06/07/2024 Paroxysmal atrial fibrillation (ICD-10 - I48.0) Plan Of Treatment Medication Medication Name Sig Start Date Stop Date Notes Metoprolol Succinate ER 100 MG TAKE 1 AN D 1/2 TABLETS BY MOUTH EVERY DAY Ibuprofen 600 MG TAKE 1 TABLET BY ARISTEO TH THREE TIMES DAILY WITH FOOD OR MILK NEEDED Pending Test Test Name Order Date PROFILE, RANDOM (COMPREHENSIVE METABOLIC ) 06/07/2024 CBC w DIFF 06/07/2024 ECG 12 lead EKG 06/07/2024 Next Appt Details Follow Up: 4 Months, Reason: ov no tests Provider Name:Byron Edge, 09/27/2024 09:15:00 AM, [address] [place] [address] [address], [place], [address], Provider Name:Byron Edge, 04/22/2025 02:00:00 PM, [address] [place] [address] [address], [place], [address], Progress Notes * Carlito BLACK ADOB:1965 (58 yo M)Acc No.[id number]:06/07/2024 Patient:?Carlito BLACK Provider:?Byron Edge MD :1965???Age:58 Y???Sex:Male Anthony e:06/07/2024 Address:[address] [place] [address] [address], [id number] Subjective: * Chief Complaints: * ???1. Clearance for Umbilica l Hernia removal. * HPI: ???COVID-19 Screening:?Questions?Have you had any [...] lost 5 lbs.. * Surgical History:?appendecto my, [facility] 2000, No history . * Hospitalization/Major [...] a first marriage. He has been to [facility] for 5 years. They have one son 3 years old, Laron. He is trying to become disabled. He is not working at this time. * Medications:?Taking Metoprol ol Succinate ER 100 MG Tablet Extended Release 24 Hour TAKE 1 AND 1/2 TABLETS BY MOUTH EVERY DAY , Taking Ibuprofen 600 MG Tablet TAKE 1 TABLET BY MOUTH THREE TIMES DAILY WITH FOOD OR MILK NEEDED , Medication List reviewed and reconciled with the patient * Allergies:?No Known Drug All ergy. Objective: * Vitals:?Ht: 68, Wt: 233, BMI :35.42, BP: 149/87, HR: 60, Temp: 96.7, Oxygen sat %: 97, Wt-k.69. * ???Past Orders: Lab:URINE DIP STICK * Collection Date 04/18/2024 09/27/2022 Order Date 04/18/2024 09/27/2022 SG 1.020 (Ref Range: 1.005 - 1.025) 1.030 (Ref Range: 1.005 - 1.025) pH 6.0 (Ref Range: 5.0 - 9.0) 5.0 (Ref Range: 5.0 - 9.0) SHILO Negative (Ref Range: Negative -) Neg (Ref Range: Negative -) NIT negative (Ref Range: Negative -) Neg (Ref Range: Negative -) PRO 15 (Ref Range: Negative - Trace) 15 (Ref Range: Negative - Trace) GLU Negative (Ref Range: Negative -) Neg (Ref Range: Negative -) KET 5 (Ref Range: Negative -) Neg (Ref Range: Negative -) UBG 0.2 (Ref Range: 0.1 - 1.8) 0.2 (Ref Range: 0.1 - 1.8) ANSON Negative (Ref Range: 0.2 - 1.3) Neg (Ref Range: 0.2 - 1.3) BLD Negative (Ref Range: Negative -) Positive (Ref Range: Negative -) Menstrating NR N/A * Examination: ???General Examination: ?GENERAL APPEARANCE:?pleasant, well [...] lower extremities, sensory exam intact.?PSYCH:?alert, oriented.? Assessment: * Assessment: 1.?Hypertension - I10???2.?O besity (BMI 30-39.9) - E66.9???3.?Paroxysmal atrial fibrillation - I48.0??? Plan: * Treatment: 2.?Obesity (BMI 30-39.9)?LAB: PROFILE, RANDOM (COMPREHENSIVE METABOLIC) ?LAB: CBC w DIFF ?Imaging: ECG 12 lead EKG 3.?Paroxysmal atrial fibrill ation?LAB: PROFILE, RANDOM (COMPREHENSIVE METABOLIC) ?LAB: CBC w DIFF ?Imaging: ECG 12 lead EKG 4.?Others? Continue Metoprolol Succinate ER Tablet Extended Release 24 Hour, 100 MG, TAKE 1 AND 1/2 TABLETS BY MOUTH EVERY DAY;?Continue Ibuprofen Tablet, 600 MG, TAKE 1 TABLET BY MOUTH THREE TIMES DAILY WITH FOOD OR MILK NEEDED.?? * Procedure Codes:?03640 MEASU RE BLOOD OXYGEN LEVEL * Preventive Medicine:? ??Counseling:?Care goal follow-up plan:?Counseling [...] Other reason not done * Follow Up:?4 Months (Reason: ov no tests) * Images: * The named appointment provid er may or may not be the originator of this progress note, and it is not deemed complete until electronically signed by the appointment provider. Sign off status: Pending * Provider:?Byron Edge MD Date:?05/20 Generated for Aurelia story/Danika/Baldoitting on:?06/07/2024 09:50 AM EST History and Physical Notes * [...]
--- OUTSIDE RECORDS SUMMARY | 2024-06-07 09:51 | XMS_ITS | Patient Health Record ---
Author Organization Byron Edge III, MD Address [address] [place] [address] Care Team Providers Care Comic Book Designer Name Role Phone Byron Edge Primary Care [...] they stated pt has appt with Dr Juaerz on 05/08/2024 Referral Priority Routine Referral Appointment Date 05/08/2024 Medications Medication SIG (Take, Route, Frequency, Duration) Notes Start Date End Date Status Metoprolol Succinate ER 100 MG TAKE 1 AND 1/2 TABLETS BY MOUTH EVERY DAY Active Ibuprofen 600 MG TAKE 1 TABLET BY ARISTEO TH THREE TIMES DAILY WITH FOOD OR MILK NEEDED Active Immunizations Vaccine Route Administration Date Status Comme nts Influenza no Preserv 3 and > Unknown 02/21/2020 Adminis tered Tdap Unknown 10/20/2021 Administered Influenza no Preserv 3 and > Unknown 03/02/2022 Adminis tered Tetanus and Diphtheria Toxoi ds Adsorbed Unknown 12/07/2016 Administered Influenza no Preserv 3 and > Unknown 02/18/2014 Adminis tered Influenza, quad Unknown 03/22/2018 Administered Influenza, quad Unknown 03/10/2023 Administered Influenza no Preserv 3 and > Unknown 02/13/2013 Adminis tered Influenza, quad Unknown 02/21/2020 Administered Social History Tobacco Use: Social History Observation [...] Never (0 point) Points 1 Interpretation Negative Problems Problem Type SNOMED Code ICD Code Onset Dates Problem Status W/U Status Risk Notes Problem Hypertension (18245071) Hypertension (I10) Active confirmed His blood pressure is stable at the upper limits of normal. I recommended aggressive weight loss and sodium restriction and regular physical activity. He was given an appointment to return to the office to measure his vital signs. Problem 805697188 Mixed hyperlipidemia (E78.2) Active confirmed His lipids have been stable. Comprehensive blood work with a fasting lipid profile was ordered today. Problem 422332796 Paroxysmal atrial fibrillation (I48.0) Active confirmed He has a history of paroxysmal atrial fibrillation. He is in regular sinus rhythm today. He and his have noted episodes of tachycardia mostly at night. I have ordered a Holter monitor to determine the rhythm night. Problem 587899903 GERD without esophagitis (K21.9) Active confirmed His reflux is well controlled with riii-fgd-asxoz er medications and no change in his regimen is necessary. Problem 080075841 Obesity (BMI 30-39.9) (E66.9) Active confirmed He has lost a couple of pounds. His weight is stable. We discussed his weight loss strategy. We made a plan to lose weight at a rate of one half of a pound per week. Problem 5805017 Umbilical hernia without obstruction and without gangrene (K42.9) Active confirmed This is a small problem and is asymptomatic at this time. Observation will be sufficient. Problem 546467047 History of depression (Z86.59) Active confirmed He will be monitored carefully for recurrent depression. Currently, he is doing well. Problem 044844721 Migraine without aura and without status migrainosus, not intractable (G43.009) Active confirmed He has infrequent migraines and none recently. He will be observed. Vital Signs Heart Rate 60 /min 06/07/2024 Temperature 96.7 degrees Fahrenheit 06/07/2024 Oximetry 97 % 06/07/2024 Blood pressure diastolic 87 mm Hg 06/07/2024 Height 68 in 06/07/2024 Blood pressure systolic 149 mm Hg 06/07/2024 Weight 233 lbs 06/07/2024 BMI 35.42 kg/m2 06/07/2024 Encounters Encounter Location Date Provider Diagnosis Byron Edge III, MD [address] [place] [address] [place] [address] 06/07/2024 Byron Edge Hypertension I10 ; Obesity (BMI 30-39.9) E66.9 and Paroxysmal atrial fibrillation I48.0 Byron Edge III, MD [address] [place] [address] [place] [address] 04/18/2024 Byron Edge Paroxysmal atrial fibrillation I48.0 ; Mixed hyperlipidemia E78.2 ; Obesity (BMI 30-39.9) E66.9 ; GERD without esophagitis K21.9 ; History of depression Z86.59 ; Umbilical hernia without obstruction and without gangrene K42.9 ; Migraine without aura and without status migrainosus, not intractable G43.009 and Hypertension I10 Byron Edge III, MD [address] [place] [address] [place] [address] 07/25/2023 Byron Garridorne Assessments Encounter Date Diagnosis (ICD Code) Assessment Notes Treat ment Notes Treatment Clinical Notes 06/07/2024 Hypertension (ICD-10 - I10) 04/18/2024 Mixed hyperlipidemia (ICD-10 - E78.2) His lipids have been stable. Comprehensive blood work with a fasting lipid profile was ordered today. 04/18/2024 Paroxysmal atrial fibrillation (ICD-10 - I48.0) He has a history of paroxysmal atrial fibrillation. He is in regular sinus rhythm today. He and his have noted episodes of tachycardia mostly at night. I have ordered a Holter monitor to determine the rhythm night. 06/07/2024 Obesity (BMI 30-39.9 ) (ICD-10 - E66.9) 04/18/2024 Obesity (BMI 30-39.9 ) (ICD-10 - E66.9) He has lost a couple of pounds. His weight is stable. We discussed his weight loss strategy. We made a plan to lose weight at a rate of one half of a pound per week. 06/07/2024 Paroxysmal atrial fibrillation (ICD-10 - I48.0) 04/18/2024 GERD without esophagitis (ICD-10 - K21.9) His reflux is well controlled with dema-xfi-qgyhdti medications and no change in his regimen [...] measure his vital signs. Plan Of Treatment Pending Test Test Name Order Date PROFILE, FASTING (COMPREHENSIVE METABOLI C) 04/18/2024 PROFILE, FASTING (COMPREHENSIVE METABOLI C) 09/27/2022 PROFILE, FASTING (COMPREHENSIVE METABOLI C) 04/03/2021 PROFILE, FASTING (COMPREHENSIVE METABOLI C) 11/02/2021 PROFILE, FASTING (COMPREHENSIVE METABOLI C) 02/19/2020 PROFILE, FASTING (COMPREHENSIVE METABOLI C) 04/14/2018 PROFILE, RANDOM (COMPREHENSIVE METABOLIC ) 06/07/2024 LIPID PANEL 02/19/2020 LIPID PANEL 04/14/2018 LIPID PANEL 09/27/2022 LIPID PANEL 11/02/2021 TSH (THYROID STIMULATING HORMONE) 2023 PSA, TOTAL 04/14/2018 PSA, TOTAL 04/18/2024 PSA, TOTAL 09/27/2022 PSA, TOTAL SCREEN 11/02/2021 CBC w DIFF 11/02/2021 CBC w DIFF 02/19/2020 CBC w DIFF 04/14/2018 CBC w DIFF 06/07/2024 CBC w DIFF 04/03/2021 CBC w DIFF 09/27/2022 XR CHEST 2 VIEW PA & LAT 10/05/2019 CBC WITH AUTO DIFF 04/18/2024 SARS COV2 RNA RT PCR 02/19/2020 Lipid Panel 04/03/2021 Lipid Panel 04/18/2024 Free T4 (Free Thyroxine) 04/18/2024 ECG 12 lead EKG 06/07/2024 ECG 7 day holter monitor 04/18/2024 Next Appt Details Provider Name:Byron Edge, 09/27/2024 09:15:00 AM, [address] [facility] [address], [place], [address], Provider Name:Byron Edge, 04/22/2025 02:00:00 PM, [address] [facility] [address], [place], [address], Insurance Providers Payer Name Payer Address Payer Phone Subscriber Number Group Number Insured Name Patient Relationship to Insured Coverage Start Date Coverage End Date MEDICARE NGS [address] [place] [address] [id number] Carlito Babb Self - patient is the insured MEDICAID [address] [place] [id number] [phone] [id number] aCrlito Babb Self - patient is the insured Medical (General) History Medical History History ICD Code Hyperlipidemia hypertension GERD depression migraine arthralgias ED paroxysmal atrial fibrillation. 2011 obesity umbilical hernia GERD The patient had a colonoscop y in 2019 and his exam was normal. He had controlled heartburn and hadn't had many migraines. He also had a small hernia that was not causing any issues. He lost 5 lbs. Surgical History Surgery Date(Month/Year) No history appendectomy, [facility] 200 1 Hospitalization History Reason Date(Month/Year) No history
--- NOTE | 2024-06-07 09:52 | ECG_ITS ---
Test Reason : i10, e66.9, i48.0 Blood Pressure : / mmHG Vent. Rate : 057 BPM Atrial Rate : 057 BPM P-R Int : 156 ms QRS Dur : 092 ms QT Int : 400 ms P-R-T Axes : 063 -13 018 degrees QTc Int : 389 ms Sinus bradycardia Otherwise normal ECG When compared with ECG of 05-JUL-2014 09:58, No significant change was found Referred By: Byron Edge Electronically Signed By:CINDY NARVAEZ
[2024-06-07 09:57] LABS: MANUAL DIFF FLAG NO
[2024-06-07 11:17] LABS: Basophils Absolute Auto 0.1 X10*3/uL (0.0-0.2); Basophils Percent Auto 0.8 % (0-2); Eosinophils Absolute Auto 0.2 X10*3/uL (0.0-0.4); Eosinophils Percent Auto 2.5 % (0-4); Hematocrit 42.4 % (42.0-52.0); Imm Gran Abs Auto 0.02 X10*3/uL (0.00-0.03); Imm Gran Pct Auto 0.3 % (0.0-0.4); Lymphocytes Absolute Auto 2.1 X10*3/uL (1.2-4.9); Lymphocytes Percent Auto 29.8 % (20-40); Mean Corpuscular HGB Conc 35.4 g/dl (31.0-36.0); Mean Corpuscular Hemoglobin 32.1 pg (27.0-33.0); Mean Corpuscular Volume 90.6 fL (80.0-98.0); Mean Platelet Volume 8.6 fL (9.4-12.4); Monocytes Absolute Auto 0.7 X10*3/uL (0.1-1.2); Monocytes Percent Auto 9.3 % (2-11); Neutrophils Absolute Auto 4.1 x10*3/uL (2.0-8.3); Neutrophils Percent Auto 57.3 % (45-73); Platelet Count 304 X10*3/uL (160-400); Red Blood Count 4.68 X10*6/uL (4.60-5.80); White Blood Count 7.1 X10*3/uL (4.8-10.8)
[2024-06-07 12:26] LABS: Alanine Aminotransferase 55 U/L (0-40); Albumin Level 4.2 g/dL (3.5-5.0); Alkaline Phosphatase 61 U/L (39-117); Anion Gap 6 (12-20); Aspartate Amino Transferase 18 U/L (5-37); Bilirubin Total 0.9 mg/dL (0.0-1.0); Blood Urea Nitrogen 11 mg/dL (9-16); Calcium 9.2 mg/dL (8.4-10.2); Carbon Dioxide 30 mmol/L (22-29); Chloride 108 mmol/L (96-108); Estimated Glomerular Filt Rate > 60; Glucose Random 90 mg/dL (60-115); Potassium 4.2 mmol/L (3.3-5.1); Sodium 140 mmol/L (135-145); Total Protein 7.3 g/dL (6.5-8.0)
== END ==
LOC: HO.CARD 09:43
PROVIDERS: PCP Internal Medicine Medical Oncology; Visit Provider Internal Medicine Medical Oncology
DX: I10 Essential (primary) hypertension (principal); E66.9 Obesity, unspecified; I48.0 Paroxysmal atrial fibrillation
CPT/HCPCS: 36415; 80053; 85025; 93005

== ENCOUNTER → 2024-06-07 09:52 | Outpatient (BNV) | payer MEDICARE, MEDICAID, SELFPAY | PROVIDERS: PCP Internal Medicine Medical Oncology; Visit Provider Internal Medicine | DX: R00.1 Bradycardia, unspecified (principal) | CPT/HCPCS: 93010 ==

== ENCOUNTER 2025-03-04 14:58 | Outpatient (REF) | payer MEDICARE, MEDICAID, SELFPAY ==
--- OUTSIDE RECORDS SUMMARY | 2024-06-07 11:48 | XMS_ITS ---
Author Organization Byron Edge III, MD Address [address] [place] [address] Care Team Providers Care General Assistant Name Role Phone Byron Edge Primary Care Provider REASON FOR VISIT Message Social History Sex Assigned At : Social History Observation Description Sex Assigned At Male Encounters Encounter Location Date Provider Diagnosis Byron Edge III, MD [address] [place] [address] [address] [place] [address] 06/07/2024 Byron Edge Plan Of Treatment Next Appt Details Provider Name:Byron Edge, 03/11/2025 03:30:00 PM, [address] [place] [address] [address], [place], [address], Provider Name:Byron Edge, 04/22/2025 02:00:00 PM, [address] [place] [address] [address], [place], [address], Progress Notes * Carlito BLACK ADOB:1965 (58 yo M)Acc No.[id number]:06/07/2024 Patient: Osiris TOOTIE, Carlito Thompson :1965 A ge:58 Y S ex:Male Address:[address], [address], [place], [address] * true * Date: Generated for Aurelia story/Anag/eTransmitting on: 0 03/04/2025 08:25 PM EDT
--- OUTSIDE RECORDS SUMMARY | 2024-09-27 05:15 | XMS_ITS ---
Author Organization Byron Edge III, MD Address [address] [place] [address] Care Team Providers Care Rn Patient Care Name Role Phone Byron Edge Primary Care Provider Allergies Allergen (clinical drug ingredient) Drug/Non Drug Allergy documented on EMR Reaction Allergy Type Onset Date Status No Known Drug Allergy Unknown Drug Allergy Active REASON FOR VISIT follow up Medications Medication SIG (Take, Route, Frequency, Duration) [...] Observation Description Sex Assigned At Male Tobacco Control (Standard) Question Answer Notes Tobacco use: Nonsmoker Additional Findings: Tobacco non-user Aggressive nonsmoker Encounters Encounter Location Date Provider Diagnosis Byron Edge III, MD [address] [place] [address] [address] [place] [id number] 09/27/2024 Byron Edge Plan Of Treatment Medication Medication Name Sig Start Date Stop Date Notes Metoprolol Succinate ER 100 MG TAKE 1 AN D 1/2 TABLETS BY MOUTH EVERY DAY Ibuprofen 600 MG TAKE 1 TABLET BY ARISTEO TH THREE TIMES DAILY WITH FOOD OR MILK NEEDED Next Appt Details Provider Name:Byron Edge, 03/11/2025 03:30:00 PM, [address] [facility] [place], [address], Provider Name:Byron Edge, 04/22/2025 02:00:00 PM, [address] [facility] [place], [address], Progress Notes * Carlito BLACK ADOB:1965 (59 yo M)Acc No.[id number]:09/27/2024 Progress Notes Patient: Carlito HANKINS Provider: Reji Edge MD :1965 A ge:58 Y S ex:Male Date:09/27/2024 Address:[address] [place] [address], [address], [id number] Subjective: * Chief Complaints: * 1 . Follow up. * HPI: C OVID-19 Screening: Questions H ave you had any new onset fever, chills, cough, congestion, sore throat, shortness of breath, muscle aches? N o * ROS: G eneral/Constitutional: pain o nly normal aches and pains. C hills d enies.?Fatigue a dmits. F ever d enies. E NT: Decreased hearing d enies. R espiratory: Cough d enies. C ardiovascular: Chest pain with exertion d enies. D yspnea on exertion?denies. S hortness of breath d enies. G astrointestinal: Constipation d enies. D ecreased appetite d enies.?Diarrhea d enies. H eartburn d enies. N ausea d enies. R ectal bleeding?denies. V omiting d enies. H ematology: bruising d enies. p etechiae d enies. S wollen glands n one have been noted. G enitourinary: Frequent urination d enies. M usculoskeletal: Muscle aches d enies. P ainful joints d enies. S ciatica d enies. W eakness d enies. S kin: Itching d enies. R dinah d enies. S kin lesion(s)?denies. N eurologic: Difficulty speaking d enies. D izziness d enies.?Headache d enies. L ow back pain d enies. P sychiatric: Depressed mood d enies. * Medical History: H yperlipidemia, Hypertension, GERD, Depression, Migraine, Arthralgias, ED, Paroxysmal atrial fibrillation. 2011, Obesity, Umbilical hernia, GERD, The patient had a colonoscopy in 2019 and his exam was normal. He had controlled heartburn and hadn't had many migraines. He also had a small hernia that was not causing any issues. He lost 5 lbs.. * Surgical History: a ppendectomy, [facility] 2000, No history . * Hospitalization/Major Diagno stic Procedure: N o history . * Family History: F ather: 47 yrs, Alcoholism, heart disease, diabetes, hypertension, myocardial infarction. M other: 76 yrs, Diabetes, osteoporosis, lung cancer. C hildren: alive. S iblings: alive. P aternal uncle: alive. 3 brother(s) , 2 sister(s) . 2 son(s) , 2 daughter(s) - healthy. . His 3 brothers are healthy and well. One of his sisters has a renal cancer. He has 4 healthy children from her first marriage. A maternal grandmother has diabetes. A paternal uncle has diabetes and heart disease at the age of 50. A paternal aunt. Coronary artery disease. A maternal aunt had breast cancer. * Social History: T obacco Use: T obacco Control (Standard) T obacco use: N onsmoker A dditional Findings: Tobacco non-user A ggressive nonsmoker Liv florez was born in [place]. He is and has 4 children from a first marriage. He has been to [facility] [employer] for 5 years. They have one son 3 years old, Laron. He is trying to become disabled. He is not working at this time. * Medications: T aking Metoprolol Succinate ER 100 MG Tablet Extended Release 24 Hour TAKE 1 AND 1/2 TABLETS BY MOUTH EVERY DAY , Taking Ibuprofen 600 MG Tablet TAKE 1 TABLET BY MOUTH THREE TIMES DAILY WITH FOOD OR MILK NEEDED , Medication List reviewed and reconciled with the patient * Allergies: N o Known Drug Allergy. Objective: * Vitals: * Examination: G eneral Examination: GENERAL APPEARANCE: p leasant, well nourished, well developed, in no acute distress, calm and relaxed. HEAD: a traumatic, normocephalic. EYES: e odette, perrla, anicteric, conjugate. EARS: n ormal. NOSE: s eptum intact. ORAL CAVITY: n ormal, unremarkable. NECK/THYROID: n o jugular venous distention, no carotid bruit, thyroid normal. LYMPH NODES: n o enlarged lymph nodes,spleen normal. SKIN: n o suspicious lesions, anicteric. HEART: n o clicks, gallops, murmurs, or rubs, regular rhythm, S1, S2 normal, no s3, or vascular bruits. LUNGS: c lear to auscultation . BREASTS: no masses palpable bilaterally. ABDOMEN: b owel sounds normal, no ascites, no organomegaly, no mass. RECTAL EXAM: n ot examined. MUSCULOSKELETAL: e xtremities unremarkable, no clubbing, cyanosis or edema. PERIPHERAL PULSES: n ormal. NEUROLOGIC: a lert and oriented, cranial nerves 2-12 grossly intact, deep tendon reflexes 2+ symmetrical, motor strength normal upper and lower extremities, sensory exam intact. PSYCH: a lert, oriented. Assessment: Plan: * Treatment: * Images: * The named appointment provid er may or may not be the originator of this progress note, and it is not deemed complete until electronically signed by the appointment provider. Sign off status: Pending * Provider: Reji Edge MD Date: 0 09/27/2024 Generated for Aurelia story/Danika/eTransmitting on: 0 03/04/2025 08:25 PM EDT History and Physical Notes * HPI (History [...]
--- OUTSIDE RECORDS SUMMARY | 2024-11-06 10:15 | XMS_ITS ---
Author Organization Byron Edge III, MD Address [address] [place] [address] Care Team Providers Care President And Chief Operating Officer Name Role Phone Byron Edge Primary Care Provider Allergies Allergen (clinical drug ingredient) Drug/Non Drug Allergy documented on EMR Reaction Allergy Type Onset Date Status No Known Drug Allergy Unknown Drug Allergy Active Reason For Referral Reason Evaluate and Treat Injury Left foot, 1st and 2nd toe Diagnosis 1 Unspecified fracture of left toe(s), initial encounter for closed fracture (S92.912A) Referral Organization Byron Edge III, MD Referring Provider First Name Byron Referring Provider Last Name Kely Referring Provider Speciality Internal M edicine Referred Provider EVAN MON Referred Provider Specialty Podiatry General Notes Autumn Payne 11/07/2024 11:12:38 AM > patient is requesting an urgent appointment and asking why the referral was not sent. Patient was informed we do have to wait for the progress note to be completed in order for it to be sent. Patient was advised to go to [facility] Autumn Payne 11/13/2024 09:22:38 AM > Referral and progress note faxed Referral Priority Routine Referral Appointment Date 11/21/2024 REASON FOR VISIT left toe injury file cabinet on foot around 10/07/2024, Hyperlipidemia, GERD, Obesity Medications Medication SIG (Take, Route, Frequency, Duration) Notes Start Date End Date Status Metoprolol Succinate ER 100 MG TAKE 1 AND 1/2 TABLETS BY MOUTH EVERY DAY Active Ibuprofen 600 MG TAKE 1 TABLET BY RAISTEO TH THREE TIMES DAILY WITH FOOD OR MILK NEEDED Active Social History Tobacco Use: Social History Observation Description Date Details (start date - stop date) Never Smoker NA - NA Sex Assigned At : Social History Observation Description Sex Assigned At Male Tobacco Control (Standard) Question Answer Notes Tobacco use: Nonsmoker Additional Findings: Tobacco non-user Aggressive nonsmoker Problems Problem Type SNOMED Code ICD Code Onset Dates Problem Status W/U Status Risk Notes Problem [id number] Closed nondisplaced fracture of phalanx of toe of left foot, unspecified toe, initial encounter (S92.912A) Active confirmed He has been to orthopedics and is wearing and orthopedic boot. Surgical he will not be necessary. Vital Signs Temperature 97.2 degrees Fahrenheit 11/07/19 25 Blood pressure systolic 136 mm Hg 11/07/19 25 Blood pressure diastolic 79 mm Hg 025 Heart Rate 62 /min 11/06/2024 Height 68 in 11/06/2024 Weight 235 lbs 11/06/2024 BMI 35.73 kg/m2 11/06/2024 Encounters Encounter Location Date Provider Diagnosis Byron Edge III, MD [address] [place] [address] [place] [address] 11/06/2024 Byron Edge Closed nondisplaced fracture of phalanx of toe of left foot, unspecified toe, initial encounter S92.912A ; Mixed hyperlipidemia E78.2 ; GERD without esophagitis K21.9 ; History of depression Z86.59 ; Umbilical hernia without obstruction and without gangrene K42.9 ; Migraine without aura and without status migrainosus, not intractable G43.009 ; Obesity (BMI 30-39.9) E66.9 and Hypertension I10 Assessments Encounter Date Diagnosis (ICD Code) Assessment Notes Treat ment Notes Treatment Clinical Notes 11/06/2024 Closed nondisplaced fracture of phalanx of toe of left foot, unspecified toe, initial encounter (ICD-10 - S92.912A) There may be a fracture of a bone as the pain remains severe. An x-ray of the foot was obtained as well as a podiatry consult. 11/06/2024 Mixed hyperlipidemia (ICD-10 - E78.2) His lipids have been stable. Comprehensive blood work with a fasting lipid profile was ordered today. 11/06/2024 GERD without esophagitis (ICD-10 - K21.9) His reflux is well controlled with [id number]-rgi-gbdnzpy medications and no change in his regimen is necessary. 11/06/2024 History of depressio n (ICD-10 - Z86.59) He will be monitored carefully for recurrent depression. Currently, he is doing well. 11/06/2024 Umbilical hernia without obstruction and without gangrene (ICD-10 - K42.9) He has elected to have the umbilical hernia repaired. I have some examined him carefully today and taken a careful history. He is in a regular cardiac rhythm with no premature heartbeats are normal range. His recent Holter monitor showed no significant abnormalities. He is going to have an EKG and comprehensive blood work. As up-to-date. He is medically cleared for surgery to correct the umbilical hernia. The benefit is great and the risk is small.This clearance supposes that the blood work EKG, which are pending. Return as normal. 11/06/2024 Migraine without aur a and without status migrainosus, not intractable (ICD-10 - G43.009) He has infrequent migraines and none recently. He will be observed. 11/06/2024 Obesity (BMI 30-39.9 ) (ICD-10 - E66.9) He has gained 2pounds. We made a plan to lose weight at a rate of onee half of a pound per week through a diet restricted in fat calories and sodium combined with regular physical activity. 11/06/2024 Hypertension (ICD-10 - I10) His blood pressure is well controlled and no change in his medications as necessary.The value was 136/79. Plan Of Treatment Medication Medication Name Sig Start Date Stop Date Notes Metoprolol Succinate ER 100 MG TAKE 1 AN D 1/2 TABLETS BY MOUTH EVERY DAY Ibuprofen 600 MG TAKE 1 TABLET BY ARISTEO TH THREE TIMES DAILY WITH FOOD OR MILK NEEDED Referrals Referral Date Details 11/06/2024 11/06/2024, Evaluate and Treat Injury Left foot, 1st and 2nd toe, EVAN MON Next Appt Details Follow Up: 2 Weeks, Reason: OV Provider Name:Byron Edge, 03/11/2025 03:30:00 PM, [address] [place] [address] [address], [place], [address], Provider Name:Byron Edge, 04/22/2025 02:00:00 PM, [address] [place] [address] [address], [place], [phone], Progress Notes * Carlito BLACK ADOB:1965 (58 yo M)Acc No.[id number]:11/06/2024 Progress Notes Patient: Carlito HANKINS Provider: Reji Edge MD :1965 A ge:58 Y S ex:Male Date:11/06/2024 Address:[address] [place] [address], [address], [id number] Subjective: * Chief Complaints: * L eft toe injury file cabinet on foot around 10/07/2024HyperlipidemiaGERDObesity * HPI: v : October 07, 2024 he dropped a heavy object on his left foot which landed on his toes but not the metatarsals. The left second toe continues to be very painful. It was painful to range of motion today but did not appear to be swollen or erythematous.? Manipulating the joints of the toe is extremely painful. An x-ray of the foot was ordered to see if there was a fracture. He was instructed on warm soaks and ibuprofen. * ROS: G eneral/Constitutional: pain L eft foot second toe. C hills d enies. F atigue a dmits. F ever d enies. E [...] Depressed mood d enies. * Medical History: * Surgical History: a ppendectomy, [facility] 2000No history * Hospitalization/Major Diagno stic Procedure: N o history * Family History: F ather: 47 yrs, [...] ggressive nonsmoker Liv florez was born in [place]. He is and has 4 children from a first marriage. He has been to [employer] for 5 years. They have one son 3 years old, Laron. He is trying to become disabled. He is not working at this time. * Medications: T akingMetoprolol Succinate ER 100 MG Tablet Extended Release 24 Hour TAKE 1 AND 1/2 TABLETS BY MOUTH EVERY DAY Ibuprofen 600 MG Tablet TAKE 1 TABLET BY MOUTH THREE TIMES DAILY WITH FOOD OR MILK NEEDED Medication List reviewed and reconciled with the patientTaking Metoprolol Succinate ER 100 MG Tablet Extended Release 24 Hour TAKE 1 AND 1/2 TABLETS BY MOUTH EVERY DAY Taking Ibuprofen 600 MG Tablet TAKE 1 TABLET BY MOUTH THREE TIMES DAILY WITH FOOD OR MILK NEEDED Medication List reviewed and reconciled with the patient * Allergies: N o Known Drug Allergyno[Allergies Verified] Objective: * Vitals: H t: 68, Wt: 235, BMI:35.73, BP: 136/79, HR: 62, Temp: 97.2, Wt-k.59. * Examination: G eneral Examination: GENERAL APPEARANCE: p leehsan, well nourished, well developed, in no acute distress, calm and relaxed, obese, man. HEAD: a traumatic, normocephalic. EYES: e odette, [...] normal, no ascites, no organomegaly, no mass, Moderate umbilical hernia. RECTAL EXAM: n ot examined. MUSCULOSKELETAL: e xtremities unremarkable, no clubbing, cyanosis or edema, The left foot appear normal, there was pain to range of motion of thhe left PIP and DIP and metatarsophalangeal joint of the second toe. PERIPHERAL PULSES: n ormal. NEUROLOGIC: a lert and oriented, cranial nerves 2-12 grossly intact, deep tendon reflexes 2+ symmetrical, motor strength normal upper and lower extremities, sensory exam intact. PSYCH: a lert, oriented. Assessment: * Assessment: 1. C losed nondisplaced fracture of phalanx of toe of left foot, unspecified toe, initial encounter - S92.912A (Primary) N otes :There may be a fracture of a bone as the pain remains severe. An x-ray of the foot was obtained as well as a podiatry consult. 2 . M ixed hyperlipidemia - E78.2 N otes :His lipids have been stable. Comprehensive blood work with a fasting lipid profile was ordered today. 3 . G ERD without esophagitis - K21.9 N otes :His reflux is well controlled with unvd-kyy-phrzovk medications and no change in his regimen is necessary. 4 . H istory of depression - Z86.59 N otes :He will be monitored carefully for recurrent depression. Currently, he is doing well. 5 . U mbilical hernia without obstruction and without gangrene - K42.9 ? N otes :He has elected to have the umbilical hernia repaired. I have some examined him carefully today and taken a careful history. He is in a regular cardiac rhythm with no premature heartbeats are normal range. His recent Holter monitor showed no significant abnormalities. He is going to have an EKG and comprehensive blood work. As up-to-date. He is medically cleared for surgery to correct the umbilical hernia. The benefit is great and the risk is small.This clearance supposes that the blood work EKG, which are pending. Return as normal. 6 . M igraine without aura and without status migrainosus, not intractable - G43.009 N otes :He has infrequent migraines and none recently. He will be observed. 7 . O besity (BMI 30-39.9) - E66.9 N otes :He has gained 2pounds. We made a plan to lose weight at a rate of onee half of a pound per week through a diet restricted in fat calories and sodium combined with regular physical activity. 8 . H ypertension - I10 N otes :His blood pressure is well controlled and no change in his medications as necessary.The value was 136/79. Plan: * Treatment: 2. O thers Referral To:EVAN MON Podiatry Reason:Evaluate and Treat Injury Left foot, 1st and 2nd toe * Procedure Codes: * Preventive Medicine: Counseling: C are goal follow-up plan: Counseling for abnormal BMI given Y es Above Normal BMI Follow-up D ietary management education, guidance, and counseling, Dietary needs education * Follow Up: 2 Weeks (Reason: OV) * Images: * Sign off status: Completed true * Provider: Reji Edge MD Date: 0 11/06/2024 Generated for Aurelia story/Danika/Darius on: 0 03/04/2025 08:25 PM EDT History and Physical Notes * Examination Category Sub-Category Detail Notes General Examination [...] normal, no ascites, no organomegaly, no mass, Moderate umbilical hernia NEUROLOGIC: alert and oriented, cranial nerves 2-12 grossly intact, deep tendon reflexes 2+ symmetrical, motor strength normal upper and lower extremities, sensory exam intact SKIN: no suspicious lesion s, anicteric PERIPHERAL PULSES: normal BREASTS: no masses palpable b ilaterally MUSCULOSKELETAL: extremities unremark able, no clubbing, cyanosis or edema, The left foot appear normal, there was pain to range of motion of thhe left PIP and DIP and metatarsophalangeal joint of the second toe LYMPH NODES: no enlarged lymph no sanju,spleen normal RECTAL EXAM: not examined PSYCH: alert, oriented ORAL CAVITY: normal, unremarkable Consultation Request Notes Referral Date Referring Provider Referred Provider Not 11/06/2024 Byron Edge CHRISTOPHER Evaluate and Treat Injury Left foot, 1st and 2nd toe
--- OUTSIDE RECORDS SUMMARY | 2024-12-04 05:15 | XMS_ITS ---
Author Organization Byron Edge III, MD Address [address] [place] [address] Care Team Providers Care Landscape Horticulture Instructor Name Role Phone Byron Edge Primary Care Provider Allergies Allergen (clinical drug ingredient) Drug/Non Drug Allergy documented on EMR Reaction Allergy Type Onset Date Status No Known Drug Allergy Unknown Drug Allergy Active REASON FOR VISIT Hyperlipidemia, GERD, Umbilical hernia, Hypertension, Obesity, Migraine, Depression Medications Medication SIG (Take, Route, Frequency, Duration) [...] Tobacco non-user Aggressive nonsmoker Vital Signs Temperature 97.2 degrees Fahrenheit 12/05/19 25 Blood pressure systolic 133 mm Hg 12/05/19 25 Blood pressure diastolic 82 mm Hg 025 Heart Rate 57 /min 12/04/2024 Height 68 in 12/04/2024 Weight 234 lbs 12/04/2024 BMI 35.58 kg/m2 12/04/2024 Encounters Encounter Location Date Provider Diagnosis Byron Edge III, MD [address] [place] [address] [place] [address] 12/04/2024 Byron Edge Closed nondisplaced fracture of phalanx of toe of left foot, unspecified toe, initial encounter S92.912A ; Mixed hyperlipidemia E78.2 ; GERD without esophagitis K21.9 ; History of depression Z86.59 ; Umbilical hernia without obstruction and without gangrene K42.9 ; Migraine without aura and without status migrainosus, not intractable G43.009 and Obesity (BMI 30-39.9) E66.9 Assessments Encounter Date Diagnosis (ICD Code) Assessment Notes Treat ment Notes Treatment Clinical Notes 12/04/2024 Closed nondisplaced fracture of phalanx of toe of left foot, unspecified toe, initial encounter (ICD-10 - S92.912A) He has been to orthopedics and is wearing and orthopedic boot. Surgical he will not be necessary. 12/04/2024 Mixed hyperlipidemia (ICD-10 - E78.2) His lipids have been stable. Comprehensive blood work with a fasting lipid profile was ordered today. 12/04/2024 GERD without esophagitis (ICD-10 - K21.9) His reflux is well controlled with wnsn-ofs-zfvincm medications and no change in his regimen is necessary. 12/04/2024 History of depressio n (ICD-10 - Z86.59) He will be monitored carefully for recurrent depression. Currently, he is doing well. 12/04/2024 Umbilical hernia without obstruction and without gangrene [...] EKG, which are pending. Return as normal. 12/04/2024 Migraine without aur a and without status migrainosus, not intractable (ICD-10 - G43.009) He has infrequent migraines and none recently. He will be observed. 12/04/2024 Obesity (BMI 30-39.9 ) (ICD-10 - E66.9) He has gained 2pounds. We made a plan to lose weight at a rate of onee half of a pound per week through a diet restricted in fat calories and sodium combined with regular physical activity. Plan Of Treatment Medication Medication Name Sig Start Date Stop Date Notes Metoprolol Succinate ER 100 MG TAKE 1 AN D 1/2 TABLETS BY MOUTH EVERY DAY Ibuprofen 600 MG TAKE 1 TABLET BY ARISTEO TH THREE TIMES DAILY WITH FOOD OR MILK NEEDED Next Appt Details Follow Up: 3 Months, Reason: OV Provider Name:Byron Edge, 03/11/2025 03:30:00 PM, [address], [place], [address], Provider Name:Byron Edge, 04/22/2025 02:00:00 PM, [address] [place] [address] [address], [place], [address], Progress Notes * Carlito BLACK ADOB:1965 (58 yo M)Acc No.[id number]:12/04/2024 Progress Notes Patient: Carlito HANKINS Provider: Reji Edge MD :1965 A ge:58 Y S ex:Male Date:12/04/2024 Address:[address] [place] [address], [facility] [address], [place], [id number] Subjective: * Chief Complaints: * H yperlipidemiaGERDUmbilical herniaHypertensionObesityMigraineDepression * HPI: C OVID-19 Screening: He returns for a scheduled visit to manage his numerous medical issues. Liv florez says his depression is gone. He feels healthy and well and his appetite is good. He has not had migraines. He umbilical hernia is asymptomatic.No changes were necessary in his regimen today.? He continues his efforts at weight loss. We discussed his diet and nutrition today.Orthopedics has given him a boot to wear on his leg for the fractured his foot. Questions H ave you had any new [...] of breath d enies. G astrointestinal: Constipation o ccasional. D ecreased appetite d enies. D iarrhea d enies. H eartburn c ontrolled with medications. N ausea d enies. R ectal bleeding d enies. V omiting d enies. H ematology: bruising d enies. p etechiae d enies. S wollen glands n one have been noted. G enitourinary: Frequent urination o nce a night. M usculoskeletal: Muscle aches d enies. P ainful joints L eft foot.?Sciatica d enies. W eakness d enies. S kin: Itching d enies. R dinah d enies. S kin lesion(s)?denies. N eurologic: Difficulty speaking d enies. D izziness d enies.?Headache d enies. L ow back pain d enies. P sychiatric: Depressed mood w hich is mild. * Medical History: * Surgical History: a ppendectomy, [facility] 2000No history * Hospitalization/Major Diagno stic Procedure: [...] ggressive nonsmoker Liv florez was born in [place]. He is and has 4 children from a first marriage. He has been to [facility] for 5 years. They have one son [...] Objective: * Vitals: H t: 68, Wt: 234, BMI:35.58, BP: 133/82, HR: 57, Temp: 97.2, Wt-k.14. * Examination: G eneral Examination: GENERAL APPEARANCE: [...] no ascites, no organomegaly, no mass, centripital obesity, Small umbilical hernia which is asymptomatic. RECTAL EXAM: n ot examined. MUSCULOSKELETAL: e xtremities unremarkable, no clubbing, cyanosis or edema, Orthopedic boot left foot. PERIPHERAL PULSES: n ormal. NEUROLOGIC: a lert and oriented, cranial nerves 2-12 grossly intact, deep tendon reflexes 2+ symmetrical, motor strength normal upper and lower extremities, sensory exam intact. PSYCH: a lert, oriented. Assessment: * Assessment: 1. M ixed hyperlipidemia - E78.2 (Primary) N otes :His lipids have been stable. Comprehensive blood work with a fasting lipid profile was ordered today. 2 . C losed nondisplaced fracture of phalanx of toe of left foot, unspecified toe, initial encounter - S92.912A N otes :He has been to orthopedics and is wearing and orthopedic boot. Surgical he will not be necessary. 3 . G ERD without esophagitis - K21.9 N otes :His reflux is well controlled with kqpx-lbh-bikxrpm medications and no change in his regimen [...] and sodium combined with regular physical activity. Plan: * Treatment: * Procedure Codes: * Preventive Medicine: Counseling: [...] or Other reason not done * Follow Up: 3 Months (Reason: OV) * Images: * Sign off status: Completed true * Provider: Reji Edge MD Date: 0 12/04/2024 Generated for Printi ng/Faxing/eTransmitting on: 0 03/04/2025 08:25 PM EDT History [...] no ascites, no organomegaly, no mass, centripital obesity, Small umbilical hernia which is asymptomatic NEUROLOGIC: alert and oriented, cranial nerves 2-12 grossly intact, deep tendon reflexes 2+ symmetrical, motor strength normal upper and lower extremities, sensory exam intact SKIN: no suspicious lesion s, anicteric PERIPHERAL PULSES: normal BREASTS: no masses palpable b ilaterally MUSCULOSKELETAL: extremities unremark able, no clubbing, cyanosis or edema, Orthopedic boot left foot LYMPH NODES: no enlarged lymph no sanju,spleen normal RECTAL EXAM: not examined PSYCH: alert, oriented ORAL CAVITY: normal, unremarkable
--- NOTE | ~2025-03-04 | XR_ITS ---
EXAMINATION: XR HAND, LEFT CLINICAL INFORMATION: LEFT HAND PAIN COMPARISON: 03/23/2019. TECHNIQUE: PA, lateral, and oblique views of the left hand. FINDINGS: The bones and soft tissues are normal. No fracture. Alignment is anatomic. Joint spaces are maintained. No erosions or soft tissue calcifications. XR/XR hand LT min 3V IMPRESSION: Normal left hand. Electronically signed by: Ashok Bradshaw MD 03/04/2025 03:19 PM EDT
--- OUTSIDE RECORDS SUMMARY | 2025-03-04 10:45 | XMS_ITS ---
Author Organization Byron Edge III, MD Address [address] [place] [address] Care Team Providers Care Collet Gluer Name Role Phone Byron Edge Primary Care Provider Allergies Allergen (clinical drug ingredient) Drug/Non Drug Allergy documented on EMR Reaction Allergy Type Onset Date Status No Known Drug Allergy Unknown Drug Allergy Active Results Component Value Reference Range Notes XR hand LT min 3V (Not yet r eviewed by provider) Interpretation: Performing Lab: Notes/Report: [facility] [address] [place] [address] XRay Report Signed Patient: Carlito Babb MR#: [id number] : 1965 Acct:[id number] Age/Sex: 59 / M ADM Date: 03/04/25 Loc: HO.XRAY Attending Dr: Byron Edge MD Ordering Physician: Byron Edge MD Date of Service: 03/04/25 Procedure(s): XR hand LT min 3V Accession Number(s): [id number] cc: Byron Edge MD Reason for Exam: LEFT HAND PAIN EXAMINATION: XR HAND, LEFT CLINICAL INFORMATION: LEFT HAND PAIN COMPARISON: 03/23/2019. TECHNIQUE: PA, lateral, and oblique views of the left hand. FINDINGS: The bones and soft tissues are normal. No fracture. Alignment is anatomic. Joint spaces are maintained. No erosions or soft tissue calcifications. XR/XR hand LT min 3V IMPRESSION: Normal left hand. Electronically signed by: Ashok Bradshaw MD 03/04/2025 03:19 PM EDT Dictated By: Ashok Bradshaw MD Signed By: <Electronically signed by Ashok Bradshaw MD in OV> 03/04/25 1519 DD/ 150 TD/TT: 03/04/251509 Ged Teacher: [address] [address] XRay Report Signed Patient: Carlito Babb MR#: [id number] : 1965 Acct:[id number] Age/Sex: 59 / M ADM Date: 03/04/25 Loc: HO.XRAY Attending Dr: Byron Edge MD Ordering Physician: Byron Edge MD Date of Service: 03/04/25 Procedure(s): XR hand LT min 3V Accession Number(s): [id number] cc: Byron Edge MD Reason for Exam: LEFT HAND PAIN EXAMINATION: XR HAND, LEFT CLINICAL INFORMATION: LEFT HAND PAIN COMPARISON: 03/23/2019. TECHNIQUE: PA, lateral, and obl ique views of the left hand. FINDINGS: The bones and soft t issues are normal. No fracture. Alignment is anatomic. Joint spac es are maintained. No erosions or soft tissue calcifications. X R/XR hand LT min 3V IMPRESSION: Normal left hand. Electronically gurvinder d by: Ashok Bradshaw MD 03/04/2025 03:19 PM EDT Dictated By: Ashko Bradshaw MD Signed By: <Rivera ham signed by Ashok Bradshaw MD in OV> 03/04/251518 DD/ 08 TD/TT: 03/04/251509 Ged Teacher: Reason For Referral Reason Consult and Treat 3rd finger left hand pain Diagnosis 1 Pain in left finger( s) (M79.645) Referral Organization Byron Edge III, MD Referring Provider First Name Byron Referring Provider Last Name Kely Referring Provider Speciality Internal M edicine Referred Provider Maine Tomlinson Referred Provider Specialty Hand Surgery Referral Priority Routine REASON FOR VISIT Left hand ring finger injury Medications Medication SIG (Take, Route, Frequency, Duration) Notes Start Date End Date Status Ibuprofen 600 MG 1 tablet with food o r milk as needed Orally Three times a day Active Metoprolol Succinate ER 100 MG TAKE 1 AND 1/2 TABLETS BY MOUTH EVERY DAY Active Albuterol Sulfate HFA 108 (90 Base) MCG/ACT 1 puff as needed Inhalation every 6 hrs for 30 days 03/04/2025 Active Social History Tobacco Use: Social History Observation Description Date Details (start date - stop date) Never Smoker NA - NA Sex Assigned At : Social History Observation Description Sex Assigned At Male Tobacco Control (Standard) Question Answer Notes Tobacco use: Nonsmoker Additional Findings: Tobacco non-user Aggressive nonsmoker Vital Signs Temperature 97.2 degrees Fahrenheit 03/04/20 25 Blood pressure systolic 154 mm Hg 03/04/20 25 Blood pressure diastolic 76 mm Hg 025 Heart Rate 63 /min 03/04/2025 Height 68 in 03/04/2025 Weight 239 lbs 03/04/2025 BMI 36.34 kg/m2 03/04/2025 Encounters Encounter Location Date Provider Diagnosis Byron Edge III, MD [address] [place] [address] [address] [facility] [address] 03/04/2025 Byron Edge Closed nondisplaced fracture of phalanx of toe of left foot, unspecified toe, initial encounter S92.912A ; Left hand pain M79.642 and Pain in left finger(s) M79.645 Assessments Encounter Date Diagnosis (ICD Code) Assessment Notes Treat ment Notes Treatment Clinical Notes 03/04/2025 Closed nondisplaced fracture of phalanx of toe of left foot, unspecified toe, initial encounter (ICD-10 - S92.912A) 03/04/2025 Left hand pain (ICD-10 - M79.642) 03/04/2025 Pain in left finger(s) (ICD-10 - M79.645) Plan Of Treatment Medication Medication Name Sig Start Date Stop Date Notes Ibuprofen 600 MG 1 tablet with food o r milk as needed Orally Three times a day Metoprolol Succinate ER 100 MG TAKE 1 AND 1/2 TABLETS BY MOUTH EVERY DAY Albuterol Sulfate HFA 108 (9 0 Base) MCG/ACT 1 puff as needed Inhalation every 6 hrs for 30 days 03/04/2025 Pending Test Test Name Order Date XR hand LT min 3V 03/04/2025 XR finger LT min 2V 03/04/2025 Referrals Referral Date Details 03/04/2025 03/04/2025, Consult and Treat 3rd finger left hand pain, [place] Tomlinson Next Appt Details Follow Up: 1 Week, Reason: O V Provider Name:Byron Edge, 03/11/2025 03:30:00 PM, [address] [place] [address] [address], [place], [address], Provider Name:Byron Edge, 04/22/2025 02:00:00 PM, [address] [place] [address] [address], [place], [address], Progress Notes * WAYNEAdrianro ADOB:1965 (59 yo M)Acc No.[id number]:03/04/2025 Patient: Carlito HANKINS Provider: Reji Edge MD :1965 A ge:59 Y S ex:Male Date:03/04/2025 Address:[address] [place] [address], [address], [id number] Subjective: * Chief Complaints: * 1 . Left hand ring finger injury. * HPI: v : yesterday left 4th finger inury swollen, no er, allergies and wheeze, i gave him albuterol. * ROS: G eneral/Constitutional: pain o nly [...] lbs.. * Surgical History: a ppendectomy, [facility] 2000, No history . * Hospitalization/Major Diagno [...] ggressive nonsmoker Liv florez was born in [place]. He is and has 4 children from a first marriage. He has been to [facility] for 5 years. They have one son 3 years old, Laron. He is trying to become disabled. He is not working at this time. * Medications: T aking Metoprolol Succinate ER 100 MG Tablet Extended Release 24 Hour TAKE 1 AND 1/2 TABLETS BY MOUTH EVERY DAY , Taking Ibuprofen 600 MG Tablet 1 tablet with food or milk as needed Orally Three times a day , Medication List reviewed and reconciled with the patient * Allergies: N o Known Drug Allergy. Objective: * Vitals: H t: 68, Wt: 239, BMI:36.34, BP: 154/76, HR: 63, Temp: 97.2, Wt-k.41. * Examination: G eneral Examination: GENERAL APPEARANCE: p michael, well nourished, well developed, in no acute [...] left foot, unspecified toe, initial encounter - S92.001T 2 . L eft hand pain - M79.642 3 . P ain in left finger(s) - M79.645 Plan: * Treatment: 2. L eft hand pain I maging: XR hand LT min 3V (Performed Date - 03/04/2025) I maging: XR finger LT min 2V 3. P ain in left finger(s) I maging: XR hand LT min 3V (Performed Date - 03/04/2025) I maging: XR finger LT min 2V Referral To:[place] Toml[facility] Hand Surgery Reason:Consult and Treat 3rd finger left hand pain * Preventive Medicine: Counseling: C are goal [...] Other reason not done * Follow Up: 1 Week (Reason: OV) * Images: * The named appointment provid er may or may not be the originator of this progress note, and it is not deemed complete until electronically signed by the appointment provider. Sign off status: Pending * Provider: Reji Edge MD Date: 03/04/2025 Generated for Aurelia story/Danika/Baldoitting on: 03/04/2025 08:25 PM EDT History and Physical [...] Referral Date Referring Provider Referred Provider Not es 03/04/2025 Byron Edge Allison Consult a nd Treat 3rd finger left hand pain
--- OUTSIDE RECORDS SUMMARY | 2025-03-04 20:25 | XMS_ITS | Patient Health Record ---
Author Organization [facility] Address [address] [place] [address] Care Team Providers Care Block Cutter Name Role Phone Evan (RETIRED) Zeeshan SANCHEZ Primary Care Provide r Unavailable Byron Martínez Unavailable [phone] Reason For Referral No Information Medications Medication SIG (Take, Route, Frequency, Duration) Notes Start Date End Date Status MiraLax - 1 capful in 8 ounces of water Orally QD-BID for constipation for 30 days 08/08/2018 Active Motrin --- 1-2 tablets orally a s needed for headaches Active Metoprolol Succinate ER 100 MG TK 1 AND 1/2 TS PO QD Oral Once a day Active MiraLax (colon prep) 8.3 ounce ((238) grams mixed with Gatorade or Crystal Light orally begin at 5:00 p.m. the day before the procedure for 1 day 08/13/2018 Active Dulcolax (colon prep) 5 MG a total of 6 pills Orally 2 tablets 2 days before the colonoscopy, and then two tablets twice a day for one day for 2 days 08/13/2018 Active Dulcolax (colon prep) 5 MG take at 3:00 p.m and 7:00p.m. Orally two tablets twice a day for one day for 1 day 10/01/2018 Active Immunizations Vaccine Route Administration Date Status Comme nts Influenza Unknown 02/18/2018 Administered Social History Tobacco Use: Social History Observation Description Date Details (start date - stop date) Never Smoker NA - NA Tobacco Use/Smoking Question Answer Notes Patient is a nonsmoker Alcohol Screen Question Answer Notes Did you have a drink contain ing alcohol in the past year? Yes How often did you have a dri nk containing alcohol in the past year? Monthly or less (1 point) How many drinks did you have on a typical day when you were drinking in the past year? 1 or 2 drinks (0 point) How often did you have 6 or more drinks on one occasion in the past year? Never (0 point) Points 1 Interpretation Negative Section Notes: Nonsmoker; occasional glass of wine Problems Problem Type SNOMED Code ICD Code Onset Dates Problem Status W/U Status Risk Notes Problem 984670808 Encounter for screening for malignant neoplasm of colon (Z12.11) Active confirmed Problem 24659201 Constipation, unspecified constipation type (K59.00) Active confirmed Plan Of Treatment Future Test Test Name Order Date COLONOSCOPY 08/08/2018 Insurance Providers Payer Name Payer Address Payer Phone Subscriber Number Group Number Insured Name Patient Relationship to Insured Coverage Start Date Coverage End Date MEDICARE OF [place] [address] [place] [address] [phone] [id number] [employer] Self - patient is the insured MEDICAID OF [facility] [address] [place] [address] [id number] [employer] Self - patient is the insured Medical (General) History Medical History History ICD Code Afib Denies PR,DM,CVA,Lung disease,renal dise ase Hypertension Surgical History Surgery Date(Month/Year) Appendectomy
--- OUTSIDE RECORDS SUMMARY | 2025-03-04 20:26 | XMS_ITS | Clinical Summary ---
Author Organization [facility] Address [address] [place] [address] Phone Care Team Providers Care Drywall Contractor Name Role Phone Byron Edge MD Primary Care Provider [phone] Allergies No known active allergies Medications No known medications Active Problems No known active problems Social History Tobacco Use Types Packs/Day Years Used Date Smoking Tobacco: Never Assessed Sex and Gender Information Value Date Recorded Sex Assigned at Not on file Legal Sex Male 2:37 AM EST Gender Identity Not on file Sexual Orientation Not on file Obstetrics History Last Filed Vital Signs Vital Sign Reading Time Taken Comments Blood Pressure 146/83 10/09/2024 5:50 PM EDT Pulse 67 10/09/2024 5:50 PM EDT Temperature 36.8 C (98.2 F) 10/09/2024 5:50 PM EDT Respiratory Rate 18 10/09/2024 5:50 PM EDT Oxygen Saturation 100% 10/09/2024 5:50 PM EDT Inhaled Oxygen Concentration - - Weight 105 kg (232 lb) 10/09/2024 1:46 PM EDT Height 175.3 cm (5' 9 ) 10/09/2024 1:46 PM EDT Body Mass Index 34.26 10/09/2024 1:46 PM EDT Plan of Treatment Health Maintenance Due Date Last Done Comments Hepatitis B Vaccines (1 of 3 - 19+ 3-dose series) 1984 Pneumococcal Vaccine: 50+ Years (1 of 1 - PCV) 12/31/2015 Zoster Vaccines (1 of 2) 12/31/2015 Depression Screening 06/20/2024 Cholesterol Screening (Lipid Panel) 10/10/2024 Colorectal Cancer Screening: Colonoscopy 10/10/2024 HIV Screening 10/10/2024 Hepatitis C Screening 10/10/2024 Medicare Annual Wellness Visit 10/10/2024 Social Influencers of Health Screening 10/10/2024 COVID-19 Vaccine ( - 2023- season) 2025 Influenza Vaccine (#1) 2025 4, 03/10/2023, 03/02/2022, Additional history exists DTaP,Tdap,and Td Vaccines (3 - Td or Tdap) 10/21/2031 10/20/2021, 12/07/2016 RSV Immunization Adult Patients (1 - 1-dose 75+ series) 2040 HIB Vaccines Aged Out No longer eligi ble based on patient's age to complete this topic HPV Vaccines Aged Out No longer eligi ble based on patient's age to complete this topic Hepatitis A Vaccines Aged Out No long er eligible based on patient's age to complete this topic IPV Vaccines Aged Out No longer eligi ble based on patient's age to complete this topic MMR Vaccines Aged Out No longer eligi ble based on patient's age to complete this topic Meningococcal ACWY Vaccine Aged Out N o longer eligible based on patient's age to complete this topic Meningococcal B Vaccine Aged Out No l onger eligible based on patient's age to complete this topic RSV Immunization Patients Under 20 months Aged Out No longer eligible based on patient's age to complete this topic Varicella Vaccines Aged Out No longer eligible based on patient's age to complete this topic Insurance MEDICARE MEDICAID - [place] Care Teams Drywall Contractor Relationship Specialty Start Date End Date Byron dEge MD [address] [address] PCP - General Oncology 11/14/24
--- OUTSIDE RECORDS SUMMARY | 2025-03-04 20:26 | XMS_ITS | Patient Health Record ---
Author Organization Byron Edge III, MD Address [address] [facility] [place] [address] Care Team Providers Care Mate First Name Role Phone Byron Edge Primary Care Provider [phone] Allergies Allergen (clinical drug ingredient) Drug/Non Drug Allergy documented on EMR Reaction Allergy Type Onset Date Status No Known Drug Allergy Unknown Drug Allergy Active Results Component Value Reference Range Notes XR hand LT min 3V (Not yet r eviewed by provider) Interpretation: Performing Lab: Notes/Report: [facility] [address] [place] [address] XRay Report Signed Patient: Carlito Babb MR#: [id number] : 1965 Acct:[id number] Age/Sex: 59 / M ADM Date: 03/04/25 Loc: HO.ROLANDOAY Attending Dr: Byron Edge MD Ordering Physician: Byron Edge MD Date of Service: 03/04/25 Procedure(s): XR hand LT min 3V Accession Number(s): [id number] cc: Byron Edge MD Reason for Exam: [...] Bradshaw MD in OV> 03/04/25 1519 DD/ 1509 TD/TT: 03/04/251509 Sports Editor: [address] [address] XRay Report Signed Patient: Carlito Babb MR#: [id number] : 1965 Acct:[id number] Age/Sex: 59 / M ADM Date: 03/04/25 Loc: HO.XRAY Attending Dr: Byron Edge MD Ordering Physician: Byron Edge MD Date of Service: 03/04/25 Procedure(s): XR newell d LT min 3V Accession Number(s): [id number] cc: Byron Edge MD Reason for Exam: LEF T HAND PAIN EXAMINATION: XR HAND, LEFT CLINICAL [...] Bradshaw MD in OV> 03/04/25 1519 DD/ 1509 TD/TT: 03/04/25 151 Sports Editor: URINE DIP STICK Reviewed date:04/18/2024 03:43:39 PM Interpretation: Performing Lab: Notes/Report: SG 1.020 1.005 - 1.025 pH 6.0 5.0 - 9.0 SHILO Negative Negative - NIT negative Negative - PRO 15 Negative - Trace GLU Negative Negative - KET 5 Negative - UBG 0.2 0.1 - 1.8 ANSON Negative 0.2 - 1.3 BLD Negative Negative - Complete Blood Count Auto Di ff Reviewed date:06/07/2024 03:08:17 PM Interpretation: Performing Lab:[facility], [address] [place] [id number] Notes/Report: White Blood Count 7.1 4.8-10.8 X10*3/uL Red Blood Count 4.68 4.60-5.80 X10*6/uL Hemoglobin 15.0 14.0-18.0 g/dl Hematocrit 42.4 42.0-52.0 % Mean Corpuscular Volume 90.6 80.0-98.0 fL Mean Corpuscular Hemoglobin 32.1 27.0-33.0 pg Mean Corpuscular HGB Conc 35.4 31.0-36.0 g/dl Red Cell Distribution Width 12.0 11.0-16.0 % Platelet Count 304 160-400 X10*3/uL Mean Platelet Volume 8.6 9.4-12.4 fL Neutrophils Percent Auto 57.3 45-73 % Imm Gran Pct Auto 0.3 0.0-0.4 % Lymphocytes Percent Auto 29.8 20-40 % Monocytes Percent Auto 9.3 2-11 % Eosinophils Percent Auto 2.5 0-4 % Basophils Percent Auto 0.8 0-2 % NRBC Pct Auto 0.0 0.0-0.2 /100WBC Neutrophils Absolute Auto 4.1 2.0-8.3 x10*3/u L Imm Gran Abs Auto 0.02 0.00-0.03 X10*3/uL Lymphocytes Absolute Auto 2.1 1.2-4.9 X10*3/u L Monocytes Absolute Auto 0.7 0.1-1.2 X10*3/uL Eosinophils Absolute Auto 0.2 0.0-0.4 X10*3/u L Basophils Absolute Auto 0.1 0.0-0.2 X10*3/uL NRBC Abs Auto 0.000 0.0-0.012 X10*3/uL Comprehensive Met. Panel Reviewed date:06/07/2024 03:08:17 PM Interpretation: Performing Lab:[facility], [address] [place] [phone] Notes/Report: Sodium 140 135-145 mmol/L Potassium 4.2 3.3-5.1 mmol/L Chloride 108 96-108 mmol/L Carbon Dioxide 30 22-29 mmol/L Anion Gap 6 12-20 Blood Urea Nitrogen 11 9-16 mg/dL Creatinine 0.88 0.5-1.4 mg/dL Estimated Glomerular Filt Rate > 60 Chronic Kidney Disease: Estimated GFR < 60 mL/min/1.73m2 Severe Kidney Disease: Estimated GFR < 15 mL/min/1.73m2 Glucose Random 90 60-115 mg/dL Calcium 9.2 8.4-10.2 mg/dL Bilirubin Total 0.9 0.0-1.0 mg/dL Aspartate Amino Transferase 18 5-37 U/L Alanine Aminotransferase 55 0-40 U/L Total Protein 7.3 6.5-8.0 g/dL Albumin Level 4.2 3.5-5.0 g/dL Alkaline Phosphatase 61 39-117 U/L Reason For Referral Reason umbilical hernia Diagnosis 1 Umbilical hernia wit hout obstruction and without gangrene (K42.9) Referral Organization Byron Edge III, MD Referring Provider First Name Byron Referring Provider Last Name Kely Referring Provider [facility]ity [facility] Referred Provider Jay Jay Juarez Referred Provider Specialty Thoracic Maryellen ayaan General Notes Crissy Bowie [facility] 04/26 10:38:51 AM >ref/demo/progress note faxed to Dr Cancino office, Crissy Bowie [facility] 05/03/2024 02:59:14 PM >called Dr Cancino office they stated pt has appt with Dr Juarez on 05/08/2024 Referral Priority Routine Referral Appointment Date 05/08/2024 Reason Evaluate and Treat Injury Left foot, 1st and 2nd toe Diagnosis 1 Unspecified fracture of left toe(s), initial encounter for closed fracture (S92.912A) Referral Organization Byron Edge III, MD Referring Provider First Name Byron Referring Provider Last Name Kely Referring Provider Speciality Internal edicine Referred Provider EVAN MON Referred Provider Specialty Podiatry General Notes Autumn Payne 11/07/2024 11:12:38 AM > patient is requesting an urgent appointment and asking why the referral was not sent. Patient was informed we do have to wait for the progress note to be completed in order for it to be sent. Patient was advised to go to [facility] Autumn Payne 11/13/2024 09:22:38 AM > Referral and progress note faxed Referral Priority Routine Referral Appointment Date 11/21/2024 Reason Consult and Treat 3rd finger left hand pain Diagnosis 1 Pain in left finger( s) (M79.645) Referral Organization Byron Edge III, MD Referring Provider First Name Byron Referring Provider Last Name Kely Referring Provider Speciality Internal M edicine Referred Provider Maine Tomlinson Referred Provider Specialty Hand Surgery Referral Priority Routine Medications Medication SIG (Take, Route, Frequency, Duration) [...] 6 hrs for 30 days 03/04/2025 Active Immunizations Vaccine Route Administration Date Status [...] Status W/U Status Risk Notes Problem Hypertension (44061977) Hypertension (I10) Active confirmed His blood pressure is well controlled and no change in his medications as necessary.The value was 136/79. Problem 821508133 Mixed hyperlipidemia (E78.2) Active confirmed His lipids have been stable. Comprehensive blood work with a fasting lipid profile was ordered today. Problem 761737382 GERD without esophagitis (K21.9) Active confirmed His reflux is well controlled with qtwe-ojt-lzpmk er medications and no change in his regimen is necessary. Problem 336061462 Obesity (BMI 30-39.9) (E66.9) Active confirmed He has gain ed 2pounds. We made a plan to lose weight at a rate of onee half of a pound per week through a diet restricted in fat calories and sodium combined with regular physical activity. Problem 9836791 Umbilical hernia without obstruction and without gangrene (K42.9) Active confirmed He has elected to have the umbilical [...] EKG, which are pending. Return as normal. Problem 916150999 History of depression (Z86.59) Active confirmed He will be monitored carefully for recurrent depression. Currently, he is doing well. Problem 764948039 Migraine without aura and without status migrainosus, not intractable (G43.009) Active confirmed He has infrequent migraines and none recently. He will be observed. Problem 81938448 Closed nondisplaced fracture of phalanx of toe of left foot, unspecified toe, initial encounter (S92.235G) Active confirmed He has been to orthopedics and is wearing and orthopedic boot. Surgical he will not be necessary. Vital Signs Heart Rate 63 /min 03/04/2025 Temperature 97.2 degrees Fahrenheit 03/04/2025 Oximetry 97 % 06/07/2024 Blood pressure diastolic 76 mm Hg 03/04/2025 Height 68 in 03/04/2025 Blood pressure systolic 154 mm Hg 03/04/2025 Weight 239 lbs 03/04/2025 BMI 36.34 kg/m2 03/04/2025 Encounters Encounter Location Date Provider Diagnosis Byron Edge III, MD [address] [place] [address] [place] [address] 03/04/2025 Byron Edge Closed nondisplaced fracture of phalanx of toe of left foot, unspecified toe, initial encounter S92.912A ; Left hand pain M79.642 and Pain in left finger(s) M79.645 Byron Edge III, MD [address] [place] [address] [place] [address] 04/18/2024 Byron Edge Paroxysmal atrial fibrillation I48.0 ; Mixed hyperlipidemia E78.2 ; Obesity (BMI 30-39.9) E66.9 ; GERD without esophagitis K21.9 ; History of depression Z86.59 ; Umbilical hernia without obstruction and without gangrene K42.9 ; Migraine without aura and without status migrainosus, not intractable G43.009 and Hypertension I10 Byron Edge III, MD [address] [place] [address] [place] [address] 06/07/2024 Byron Edge Hypertension I10 ; Umbilical hernia without obstruction and without gangrene K42.9 ; Obesity (BMI 30-39.9) E66.9 ; History of depression Z86.59 and GERD without esophagitis K21.9 Byron Edge III, MD [address] [place] [address] [place] [address] 11/06/2024 Byron Edge Closed nondisplaced fracture of phalanx of toe of left foot, unspecified toe, initial encounter S92.912A ; Mixed hyperlipidemia E78.2 ; GERD without esophagitis K21.9 ; History of depression Z86.59 ; Umbilical hernia without obstruction and without gangrene K42.9 ; Migraine without aura and without status migrainosus, not intractable G43.009 ; Obesity (BMI 30-39.9) E66.9 and Hypertension I10 Byron Edge III, MD [address] [place] [address] [place] [address] 12/04/2024 Byron Edge Closed nondisplaced fracture of phalanx of toe of left foot, unspecified toe, initial encounter S92.912A ; Mixed hyperlipidemia E78.2 ; GERD without esophagitis K21.9 ; History of depression Z86.59 ; Umbilical hernia without obstruction and without gangrene K42.9 ; Migraine without aura and without status migrainosus, not intractable G43.009 and Obesity (BMI 30-39.9) E66.9 Byron Edge III, MD [address] [place] [address] [place] [address] 06/07/2024 Byron Edge Assessments Encounter Date Diagnosis (ICD Code) Assessment Notes Treat ment Notes Treatment Clinical Notes 03/04/2025 Closed nondisplaced fracture of phalanx of toe of left foot, unspecified toe, initial encounter (ICD-10 - S92.912A) 04/18/2024 Mixed hyperlipidemia (ICD-10 - E78.2) His [...] monitor to determine the rhythm night. 06/07/2024 Hypertension (ICD-10 - I10) His blood pressure is well controlled and no change in his medications as necessary. 06/07/2024 Umbilical hernia without obstruction and without gangrene [...] which are pending. Return as normal. 11/06/2024 Mixed hyperlipidemia (ICD-10 - E78.2) His lipids have been stable. Comprehensive blood work with a fasting lipid profile was ordered today. 11/06/2024 Closed nondisplaced fracture of phalanx of toe of left foot, unspecified toe, initial encounter (ICD-10 - S92.912A) There may be a fracture of a bone as the pain remains severe. An x-ray of the foot was obtained as well as a podiatry consult. 12/04/2024 Mixed hyperlipidemia (ICD-10 - E78.2) His lipids have been stable. Comprehensive blood work with a fasting lipid profile was ordered today. 12/04/2024 Closed nondisplaced fracture of phalanx of toe of left foot, unspecified toe, initial encounter (ICD-10 - S92.912A) He has been to orthopedics and is wearing and orthopedic boot. Surgical he will not be necessary. 03/04/2025 Left hand pain (ICD-10 - M79.642) 04/18/2024 Obesity (BMI 30-39.9 ) (ICD-10 - E66.9) He has lost a couple of pounds. His weight is stable. We discussed his weight loss strategy. We made a plan to lose weight at a rate of one half of a pound per week. 06/07/2024 Obesity (BMI 30-39.9 ) (ICD-10 - E66.9) He weighs 233 pounds. This is aggravating the umbilical hernia. We made a plan to lose weight at a rate of onee half of a pound per week through a diet restricted in fat calories and sodium combined with regular physical activity. 11/06/2024 GERD without esophagitis (ICD-10 - K21.9) His reflux is well controlled with eagn-sem-yywqbew medications and no change in his regimen is necessary. 12/04/2024 GERD without esophagitis (ICD-10 - K21.9) His reflux is well controlled with jupl-fog-moadnni medications and no change in his regimen is necessary. 03/04/2025 Pain in left finger(s) (ICD-10 - M79.645) 04/18/2024 GERD without esophagitis (ICD-10 - K21.9) His reflux is well controlled with stix-igl-luubvws medications and no change in his regimen is necessary. 06/07/2024 History of depressio n (ICD-10 - Z86.59) He will be monitored carefully for recurrent depression. Currently, he is doing well. 11/06/2024 History of depressio n (ICD-10 - Z86.59) He will be monitored carefully for recurrent depression. Currently, he is doing well. 12/04/2024 History of depressio n (ICD-10 - Z86.59) He will be monitored carefully for recurrent depression. Currently, he is doing well. 04/18/2024 History of depressio n (ICD-10 - Z86.59) He will be monitored carefully for recurrent depression. Currently, he is doing well. 06/07/2024 GERD without esophagitis (ICD-10 - K21.9) His reflux is well controlled with sxzh-ity-wxdlbcj medications and no change in his regimen is necessary. 11/06/2024 Umbilical hernia without obstruction and without [...] which are pending. Return as normal. 12/04/2024 Umbilical hernia without obstruction and without [...] EKG, which are pending. Return as normal. 04/18/2024 Umbilical hernia without obstruction and without gangrene (ICD-10 - K42.9) This is a small problem and is asymptomatic at this time. Observation will be sufficient. 11/06/2024 Migraine without aur a and without status migrainosus, not intractable (ICD-10 - G43.009) He has infrequent migraines and none recently. He will be observed. 12/04/2024 Migraine without aur a and without status migrainosus, not intractable (ICD-10 - G43.009) He has infrequent migraines and none recently. He will be observed. 04/18/2024 Migraine without aur a and without [...] and sodium combined with regular physical activity. 12/04/2024 Obesity (BMI 30-39.9 ) (ICD-10 - E66.9) He has gained 2pounds. We made a plan to lose weight at a rate of onee half of a pound per week through a diet restricted in fat calories and sodium combined with regular physical activity. 04/18/2024 Hypertension (ICD-10 - I10) His blood pressure is stable at the upper limits of normal. I recommended aggressive weight loss and sodium restriction and regular physical activity. He was given an appointment to return to the office to measure his vital signs. 11/06/2024 Hypertension (ICD-10 - I10) His blood pressure is well controlled and no change in his medications as necessary.The value was 136/79. Plan Of Treatment Pending Test Test Name Order Date PROFILE, FASTING (COMPREHENSIVE METABOLI C) 09/27/2022 PROFILE, FASTING (COMPREHENSIVE METABOLI C) 11/02/2021 PROFILE, FASTING (COMPREHENSIVE METABOLI C) 04/03/2021 PROFILE, FASTING (COMPREHENSIVE METABOLI C) 02/19/2020 PROFILE, FASTING (COMPREHENSIVE METABOLI C) 04/14/2018 PROFILE, FASTING (COMPREHENSIVE METABOLI C) 04/18/2024 LIPID PANEL 09/27/2022 LIPID PANEL 11/02/2021 LIPID PANEL 02/19/2020 LIPID PANEL 04/14/2018 TSH (THYROID STIMULATING HORMONE) 2023 PSA, TOTAL 04/14/2018 PSA, TOTAL 04/18/2024 PSA, TOTAL 09/27/2022 PSA, TOTAL SCREEN 11/02/2021 CBC w DIFF 02/19/2020 CBC w DIFF 04/14/2018 CBC w DIFF 04/03/2021 CBC w DIFF 09/27/2022 CBC w DIFF 11/02/2021 XR CHEST 2 VIEW PA & LAT 10/05/2019 CBC WITH AUTO DIFF 04/18/2024 SARS COV2 RNA RT PCR 02/19/2020 Lipid Panel 04/18/2024 Lipid Panel 04/03/2021 Free T4 (Free Thyroxine) 04/18/2024 ECG 12 lead EKG 06/07/2024 XR hand LT min 3V 03/04/2025 XR finger LT min 2V 03/04/2025 ECG 7 day holter monitor 04/18/2024 Next Appt Details Provider Name:Byron Kely, 03/11/2025 03:30:00 PM, [address] [facility] [address], [place], [address], Provider Name:Byron Edge, 04/22/2025 02:00:00 PM, [address] [facility] [address], [place], [address], Insurance Providers Payer Name Payer Address Payer Phone Subscriber Number Group Number Insured Name Patient Relationship to Insured Coverage Start Date Coverage End Date MEDICARE [employer] [address] [place] [address] [id number] Carlito Babb Self - patient is the insured MEDICAID [facility] [address] [place], [place] [id number] Carlito Babb Self - patient is the insured Medical (General) History Medical History History ICD Code Hyperlipidemia hypertension GERD depression migraine arthralgias ED paroxysmal atrial fibrillation. 2010 obesity umbilical hernia GERD The patient had a colonoscop y in 2019 and his exam was normal. He had controlled heartburn and hadn't had many migraines. He also had a small hernia that was not causing any issues. He lost 5 lbs. Surgical History Surgery Date(Month/Year) No history appendectomy, [facility] 200 1 Hospitalization History Reason Date(Month/Year) No history
== END 2025-03-04 14:59 | disposition home or self-care (01) ==
LOC: HO.XRAY 14:58
PROVIDERS: PCP Internal Medicine Medical Oncology; Visit Provider Internal Medicine Medical Oncology
DX: M79.642 Pain in left hand (principal); M79.645 Pain in left finger(s)
CPT/HCPCS: 73130

== ENCOUNTER → 2025-03-04 15:09 | Outpatient (BNV) | payer MEDICARE, MEDICAID, SELFPAY | PROVIDERS: PCP Internal Medicine Medical Oncology; Visit Provider Radiology Diagnostic Radiology | DX: M79.642 Pain in left hand (principal) | CPT/HCPCS: 73130 ==

== ENCOUNTER 2025-03-12 14:03 | Outpatient (AMB) | payer MEDICARE, MEDICAID, SELFPAY ==
--- OUTSIDE RECORDS SUMMARY | 2024-12-04 05:15 | XMS_ITS ---
Author Organization Byron Edge III, MD Address [address] [place] [address] [place] [address] Care Team Providers Care Crate Tier Name Role Phone Dr. Byron Edge III Primary Care Provider [phone] Allergies Allergen (clinical drug ingredient) Drug/Non Drug [...] Provider Diagnosis Byron Edge III, MD [address] [place] [address] [place] [address] 12/04/2024 Byron Edge Closed nondisplaced fracture of [...] K21.9) His reflux is well controlled with wxxg-cxc-rpwcomc medications and no change in his regimen [...] Up: 3 Months, Reason: OV Provider Name:Byron Edge , 04/22/2025 02:00:00 PM, [address] [place] [address], [facility] [address], [place], [address], Progress Notes * Carlito BLACK ADOB:1965 (58 yo M)Acc No.[id number]:12/04/2024 Progress Notes Patient: Carlito HANKINS Provider: Reji Edge MD :1965 A ge:58 Y S ex:Male Date:12/04/2024 Address:[address] [place] [address], [facility] [address], [id number] Subjective: * Chief Complaints: * H yperlipidemiaGERDUmbilical [...] Medical History: * Surgical History: a ppendectomy, [facility] 2000No history * Hospitalization/Major Diagno stic Procedure: [...] ggressive nonsmoker Liv florez was born in [place]. He is and has 4 children from a first marriage. He has been to [facility] for 5 years. They have one [...] otes :His reflux is well controlled with eeya-lch-ctlllkg medications and no change in his regimen [...] Edge MD Date: 0 12/04/2024 Generated for Aurelia story/Danika/Baldoitting on: 0 03/12/2025 05:21 PM EDT History and Physical Notes * [...]
--- OUTSIDE RECORDS SUMMARY | 2025-03-04 10:45 | XMS_ITS ---
Author Organization Byron Edge III, MD Address [address] [place] [address] Care Team Providers Care Table Assembler Name Role Phone Dr. Byron Edge III Primary Care Provider Allergies Allergen (clinical drug ingredient) Drug/Non Drug Allergy documented on EMR Reaction Allergy Type Onset Date Status No Known Drug Allergy Unknown Drug Allergy Active Results Component Value Reference Range Notes XR hand LT min 3V Reviewed date:03/06/2025 10:10:35 AM Interpretation: Performing Lab: Notes/Report: [facility] [address] [place] [address] XRay Report Signed Patient: Carlito Black MR#: [id number] : 1965 Acct:[id number] Age/Sex: 59 / M ADM Date: 03/04/25 Loc: HO.XRAY Attending Dr: Byron Edge MD Ordering Physician: Byron Edge MD Date of Service: 03/04/25 Procedure(s): XR hand LT min 3V Accession Number(s): [id number] cc: Byron Edge MD Reason for Exam: [...] by Ashok Bradshaw MD in OV> 03/04/25 151 DD/ 150 TD/TT: 03/04/251509 Cleaner Wall: [address] [address] XRay Report Signed Patient: Carlito Black MR#: [id number] : 1965 Acct:[id number] Age/Sex: 59 / M ADM Date: 03/04/25 Loc: HO.XRAY Attending Dr: Byron Edge MD Ordering Physician: Byron Edge MD Date of Service: 03/04/25 Procedure(s): XR hand LT min 3V Accession Number(s): [id number] cc: Byron Edge MD Reason for Exam: [...] Dictated By: Ashok Bradshaw MD Signed By: <Electron ically signed by Ashok Bradshaw MD in OV> 03/04/251518 DD/ 08 TD/TT: 03/04/251509 Cleaner Wall: Reason For Referral Reason Consult and Treat 3rd finger left hand pain Diagnosis 1 Pain in left finger( s) (M79.645) Referral Organization Byron Edge III, MD Referring Provider First Name Byron Referring Provider Last Name Kely Referring Provider Speciality Internal M edicine Referred Provider Maine Tomlinson Referred Provider Specialty Hand Surgery General Notes D, 03/05/2025 03:21:00 PM > referral, progress note and Xr sent., D03/06/2025 09:21:34 AM > referral, progress note and Xr resent to Dr. Tomlinson and [facility]. Patient stated that he called this morning stating they have not received the referral. Referral Priority Routine Referral Appointment Date 03/12/2025 REASON FOR VISIT Left hand ring finger [...] 6 hrs for 30 days 03/04/2025 Active Albuterol Sulfate HFA 108 (90 Base) MCG/ACT 1 puff as needed Inhalation every 4 hrs 03/05/2025 Active Social History Tobacco Use: Social History [...] Date Provider Diagnosis Byron Edge III, MD [address] [place] [address] [place] [address] 03/04/2025 Byron Edge Closed nondisplaced fracture of phalanx of toe of left foot, unspecified toe, initial encounter S92.912A ; Obesity (BMI 30-39.9) E66.9 ; GERD without esophagitis K21.9 ; History of depression Z86.59 and Migraine without aura and without status migrainosus, not intractable G43.009 Assessments Encounter Date Diagnosis (ICD Code) Assessment Notes Treat ment Notes Treatment Clinical Notes 03/04/2025 Closed nondisplaced fracture of phalanx of toe of left foot, unspecified toe, initial encounter (ICD-10 - S92.912A) An x-ray was ordered to seee if there was a fracture. 03/04/2025 Obesity (BMI 30-39.9) (ICD-10 - E66.9) He has gained 2pounds. We made a plan to lose weight at a rate of onee half of a pound per week through a diet restricted in fat calories and sodium combined with regular physical activity. 03/04/2025 GERD without esophagitis (ICD-10 - K21.9) His reflux is well controlled with afwq-qzf-eazxkoc medications and no change in his regimen is necessary. 03/04/2025 History of depression (ICD-10 - Z86.59) He will be monitored carefully for recurrent depression. Currently, he is doing well. 03/04/2025 Migraine without aura and without status migrainosus, not intractable (ICD-10 - G43.009) He has infrequent migraines and none recently. He will be observed. Plan Of Treatment Medication Medication Name Sig Start Date Stop Date Notes Ibuprofen 600 MG 1 tablet with food o r milk as needed Orally Three times a day Metoprolol Succinate ER 100 MG TAKE 1 AND 1/2 TABLETS BY MOUTH EVERY DAY Albuterol Sulfate HFA 108 (9 0 Base) MCG/ACT 1 puff as needed Inhalation every 6 hrs for 30 days 03/04/2025 Albuterol Sulfate HFA 108 (9 0 Base) MCG/ACT 1 puff as needed Inhalation every 4 hrs 03/05/2025 Pending Test Test Name Order Date XR finger LT min 2V 03/04/2025 Referrals Referral Date Details 03/04/2025 03/04/2025, Consult and Treat 3rd finger left hand pain, Maine Tomlinson Next Appt Details Follow Up: 1 Week, Reason: O V Provider Name:Byron Edge , 04/22/2025 02:00:00 PM, [address] [place] [address] DR, [facility] [address], [place], [address], Progress Notes * Carlito BLACK ADOB:1965 (59 yo M)Acc No.[id number]:03/04/2025 Patient: Osiris TOOTIEAdrian BowieBabar Provider: Reji Egde MD :1965 A ge:59 Y S ex:Male Date:03/04/2025 Address:[address] [place] [address], [address], [place], [id number] Subjective: * Chief Complaints: * L eft hand ring finger injury * HPI: v : Liv florez was loading a vehicle with large pieces of lumbar yesterday when he jammed his left fourth finger. The proximal PIP joint is swollen with loss of range of motion. No bruising is noted. The skin is intact. An x-ray was ordered and he was referred to hand surgery.? He also complains of allergies and wheezing. This is a new complaint for him. Mild inspiratory wheezes were noted on examination and he was given an albuterol inhaler. Pulmonary function tests will be done. If this does not resolve. The chest x-ray may be necessary. * ROS: G eneral/Constitutional: pain L eft third finger. C hills d enies. F atigue a dmits. F ever d enies. E NT: Decreased hearing d enies. R espiratory: Cough d enies. C ardiovascular: Chest pain with exertion d enies. D yspnea on exertion?denies. S hortness of breath d enies. G astrointestinal: Constipation o ccasional. D ecreased appetite d enies. D iarrhea d enies. H eartburn d enies. N ausea d enies. R ectal bleeding d enies. V omiting d enies. H ematology: bruising d enies. p etechiae d enies. S wollen glands n one have been noted. G enitourinary: Frequent urination o nce a night. M usculoskeletal: Muscle aches d enies. P ainful joints P IP joint left third finger. S ciatica d enies. W eakness d enies. S kin: Itching d enies. R dinah d enies. S kin lesion(s)?denies. N eurologic: Difficulty speaking d enies. D izziness d enies.?Headache d enies. L ow back pain d enies. P sychiatric: Depressed mood d enies. * Medical History: * Surgical History: a ppendectomy, [facility] 2000No history * Hospitalization/Major Diagno stic [...] ggressive nonsmoker Liv florez was born in [place]. He is and has 4 children from a first marriage. He has been to [facility] for 5 years. They have one son 3 years old, Laron. He is trying to become disabled. He is not working at this time. * Medications: T akingAlbuterol Sulfate HFA 108 (90 Base) MCG/ACT Aerosol Solution 1 puff as needed Inhalation every 4 hrs Metoprolol Succinate ER 100 MG Tablet Extended Release 24 Hour TAKE 1 AND 1/2 TABLETS BY MOUTH EVERY DAY Ibuprofen 600 MG Tablet 1 tablet with food or milk as needed Orally Three times a day Medication List reviewed and reconciled with the patientTaking Albuterol Sulfate HFA 108 (90 Base) MCG/ACT Aerosol Solution 1 puff as needed Inhalation every 4 hrs Taking Metoprolol Succinate ER 100 MG Tablet Extended Release 24 Hour TAKE 1 AND 1/2 TABLETS BY MOUTH EVERY DAY Taking Ibuprofen 600 MG Tablet 1 tablet with food or milk as needed Orally Three times a day Medication List reviewed and reconciled with the patient * Allergies: N o Known Drug Allergyno[Allergies Verified] Objective: * Vitals: H t: 68, Wt: 239, BMI:36.34, BP: 154/76, HR: 63, Temp: 97.2, Wt-k.41. * Examination: G eneral Examination: GENERAL APPEARANCE: p leasant, well nourished, well developed, in no acute distress, calm and relaxed: obese: man. HEAD: a traumatic, normocephalic. EYES: e [...] sounds normal, no ascites, no organomegaly, no mass: centripital obesity. RECTAL EXAM: n ot examined. MUSCULOSKELETAL: P ain and swelling and lack of mobility PIP joint left third finger. PERIPHERAL PULSES: n ormal. NEUROLOGIC: a lert and oriented, cranial nerves 2-12 grossly intact, deep tendon reflexes 2+ symmetrical, motor strength normal upper and lower extremities, sensory exam intact. PSYCH: a lert, oriented. Assessment: * Assessment: 1. C losed nondisplaced fracture of phalanx of toe of left foot, unspecified toe, initial encounter - S92.442A (Primary) N otes :An x-ray was ordered to seee if there was a fracture. 2 . O besity (BMI 30-39.9) - E66.9 N otes :He has gained 2pounds. We made a plan to lose weight at a rate of onee half of a pound per week through a diet restricted in fat calories and sodium combined with regular physical activity. 3 . G ERD without esophagitis - K21.9 N otes :His reflux is well controlled with pxes-zvq-eacmlao medications and no change in his regimen is necessary. 4 . H istory of depression - Z86.59 N otes :He will be monitored carefully for recurrent depression. Currently, he is doing well. 5 . M igraine without aura and without status migrainosus, not intractable - G43.009 N otes :He has infrequent migraines and none recently. He will be observed. Plan: * Treatment: 2. O thers Referral To:Maine Tomlinson Hand Surgery Reason:Consult and Treat 3rd finger left hand pain * Imaging: * I maging: XR hand LT min 3V (Performed Date - 03/04/2025) I maging: XR finger LT min 2V * Procedure Codes: * Preventive Medicine: Counseling: [...] 1 Week (Reason: OV) * Images: * Sign off status: Completed true * Provider: Reji Edge MD Date: 0 03/04/2025 Generated for Printi ng/Anag/eTransmitting on: 03/12/2025 05:21 PM EDT History and Physical Notes * Examination Category Sub-Category Detail Notes General Examination GENERAL APPEARANCE: pleasant , well nourished, well developed, in no acute distress, calm and relaxed: obese: man HEAD: atraumatic, normocep halic EYES: eomi, perrla, anicte rigoberto, conjugate EARS: normal NOSE: septum intact NECK/THYROID: no jugular venous di stention, no carotid bruit, thyroid normal HEART: no clicks, gallops, murmurs, or rubs, regular rhythm, S1, S2 normal, no s3, or vascular bruits LUNGS: clear to auscultatio n ABDOMEN: bowel sounds normal, no ascites, no organomegaly, no mass: centripital obesity NEUROLOGIC: alert and oriented, cranial nerves 2-12 grossly intact, deep tendon reflexes 2+ symmetrical, motor strength normal upper and lower extremities, sensory exam intact SKIN: no suspicious lesion s, anicteric PERIPHERAL PULSES: normal BREASTS: no masses palpable b ilaterally MUSCULOSKELETAL: Pain and swelling an d lack of mobility PIP joint left third finger LYMPH NODES: no enlarged lymph no sanju,spleen normal RECTAL EXAM: not examined PSYCH: alert, oriented ORAL CAVITY: normal, unremarkable Consultation Request Notes Referral Date Referring Provider Referred Provider Not es 03/04/2025 Byron Edge Allison Consult a nd Treat 3rd finger left hand pain
--- OUTSIDE RECORDS SUMMARY | 2025-03-05 10:44 | XMS_ITS ---
Author Organization Byron Edge III, MD Address [address] [place] [address] [address] [facility] [place] [place] [address] Care Team Providers Care Heritage Consultant Name Role Phone Dr. Byron Edge III Primary Care Provider REASON FOR VISIT Xr Results Social History Sex Assigned At : Social History Observation Description Sex Assigned At Male Encounters Encounter Location Date Provider Diagnosis Byron Edge III, MD [address] [place] [address] [address] [place] [address] 03/05/2025 Byron Edge Plan Of Treatment Next Appt Details Provider Name:Byron Edge , 04/22/2025 02:00:00 PM, [address] [place] [address] [address], [place], [address], Progress Notes * Carlito BLACK ADOB:1965 (59 yo M)Acc No.[id number]:03/05/2025 Patient: Osiris TOOTIE, Babar :1965 A ge:59 Y S ex:Male Address:[address] [facility], [place], [address] * true * Date: Generated for Printi ng/Faxing/eTransmitting on: 0 03/12/2025 05:21 PM EDT
--- OUTSIDE RECORDS SUMMARY | 2025-03-06 13:00 | XMS_ITS ---
Author Organization Byron Edeg III, MD Address [address] [facility] [address] [address] [facility] [facility] [place] [address] Care Team Providers Care Acute Care Nurse Name Role Phone Dr. Byron Edge III Primary Care Provider [phone] REASON FOR VISIT Follow up Social History Sex Assigned At : Social History Observation Description Sex Assigned At Male Encounters Encounter Location Date Provider Diagnosis Byron Edge III, MD [address] [place] [address] [address] [place] [address] 03/06/2025 Byron Edge Plan Of Treatment Next Appt Details Provider Name:Byron Edge , 04/22/2025 02:00:00 PM, [address] [place] [address] [address], [place], [address], Progress Notes * WAYNE Carlito ADOB:1965 (59 yo M)Acc No.[id number]:03/06/2025 Progress Notes Patient: Carlito HANKINS Provider: Reji Edge MD :1965 A ge:59 Y S ex:Male Date:03/06/2025 Address:[address] [place] [address], [address], [place], [id number] Subjective: * Chief Complaints: * 1 . Follow up. * Medical History: Objective: * Vitals: Assessment: Plan: * Treatment: * Images: * The named appointment provid er may or may not be the originator of this progress note, and it is not deemed complete until electronically signed by the appointment provider. Sign off status: Pending * Provider: Reji Edge MD Date: 0 03/06/2025 Generated for Aurelia story/Danika/Baldoitting on: 0 03/12/2025 05:21 PM EDT
--- OUTSIDE RECORDS SUMMARY | 2025-03-11 11:30 | XMS_ITS ---
Author Organization Byron Edge III, MD Address [address] [place] [address] Care Team Providers Care Paraprofessional Aide Name Role Phone Dr. Byron Edge III Primary Care Provider Allergies Allergen (clinical drug ingredient) Drug/Non Drug Allergy documented on EMR Reaction Allergy Type Onset Date Status No Known Drug Allergy Unknown Drug Allergy Active REASON FOR VISIT Pain, swelling and loss of range left third finger, Hyperlipidemia, GERD, Migraine, Hypertension, Benign prostatic hypertrophy Medications Medication SIG (Take, Route, Frequency, Duration) Notes Start Date End Date Status Ibuprofen 600 MG 1 tablet with food o r milk as needed Orally Three times a day Active Metoprolol Succinate ER 100 MG TAKE 1 AND 1/2 TABLETS BY MOUTH EVERY DAY Active Albuterol Sulfate HFA 108 (90 Base) MCG/ACT 1 puff as needed Inhalation every 4 hrs 03/05/2025 Active Albuterol Sulfate HFA 108 (90 Base) MCG/ACT 1 puff as needed Inhalation every 6 hrs 03/04/2025 Active Social History Tobacco Use: Social [...] Problem Status W/U Status Risk Notes Problem [id number] Sprain and strain (T14.8XXA) Active confirmed X-rays of the left hand show no fracture left finger. This is a strain or sprain with the ligaments torn. He will see hand surgery tomorrow to expedite is feeling. Vital Signs Temperature 97.4 degrees Fahrenheit 03/11/20 25 Blood pressure systolic 137 mm Hg 03/11/20 25 Blood pressure diastolic 74 mm Hg 025 Heart Rate 58 /min 03/11/2025 Height 68 in 03/11/2025 Weight 238 lbs 03/11/2025 BMI 36.18 kg/m2 03/11/2025 Encounters Encounter Location Date Provider Diagnosis Byron Edge III, MD [address] [place] [address] [place] [address] 03/11/2025 Byron Edge Obesity (BMI 30-39.9 ) E66.9 ; Sprain and strain T14.8XXA ; BPH (benign prostatic hypertrophy) N40.0 ; Mixed hyperlipidemia E78.2 ; History of depression Z86.59 and Migraine without aura and without status migrainosus, not intractable G43.009 Assessments Encounter Date Diagnosis (ICD Code) Assessment Notes Treat ment Notes Treatment Clinical Notes 03/11/2025 Obesity (BMI 30-39.9 ) (ICD-10 - E66.9) He remains obese. We discussed diet and nutrition. We made a plaan to lose weight at a rate of 1 pound per week. 03/11/2025 Sprain and strain (ICD-10 - T14.8XXA) X-rays of the left hand show no fracture left finger. This is a strain or sprain with the ligaments torn. He will see hand surgery tomorrow to expedite is feeling. 03/11/2025 BPH (benign prostati c hypertrophy) (ICD-10 - N40.0) He has been rising from sleep once or twice a night to urinate. We discussed lifestyle modifications he could make to reduce this. 03/11/2025 Mixed hyperlipidemia (ICD-10 - E78.2) His lipids have been stable. Comprehensive blood work with a fasting lipid profile was ordered today. 03/11/2025 History of depressio n (ICD-10 - Z86.59) He will be monitored carefully for recurrent depression. Currently, he is doing well. 03/11/2025 Migraine without aur a and without status [...] as needed Inhalation every 4 hrs 03/05/2025 Albuterol Sulfate HFA 108 (9 0 Base) MCG/ACT 1 puff as needed Inhalation every 6 hrs 03/04/2025 Pending Test Test Name Order Date PROFILE, FASTING (COMPREHENSIVE METABOLI C) 03/11/2025 PSA, TOTAL 03/11/2025 CBC w DIFF 03/11/2025 Lipid Panel 03/11/2025 Next Appt Details Follow Up: As Scheduled, Lizzeth son: Annual Exam Provider Name:Byron Edge , 04/22/2025 02:00:00 PM, [address] [place] [address], [place] [address], [place], [id number], Progress Notes * Carlito BLACK ADOB:1965 (59 yo M)Acc No.[id number]:03/11/2025 Progress Notes Patient: Carlito HANKINS Provider: Reji Edge MD :1965 A ge:59 Y S ex:Male Date:03/11/2025 Address:[address] [place] [address], [facility] [address], [id number] Subjective: * Chief Complaints: * P ain, swelling and loss of range left third fingerHyperlipidemiaGERDMigraineHypertensionBenign prostatic hypertrophy * HPI: C OVID-19 Screening: He has an appointment with hand surgery tomorrow morning. The finger continues to hurt in the swelling persists. Range of motion is slightly better at the DIP joint but still is impaired. X-rays of the hand show normal structures only. Questions H ave you had any new onset fever, chills, cough, congestion, sore throat, shortness of breath, muscle aches? N o * ROS: G eneral/Constitutional: pain L eft third finger. C hills d enies. F atigue a dmits. F ever d enies. E NT: Decreased hearing d enies. R espiratory: Cough n on-productive. C ardiovascular: Chest pain with exertion d [...] d enies. P ainful joints L eft third finger PIP joint. S ciatica d enies. W eakness d enies. S kin: Itching d enies. R dinah d enies. S kin lesion(s)?denies. N eurologic: Difficulty speaking d enies. D izziness d enies.?Headache d enies. L ow back pain d enies. P sychiatric: Depressed mood d enies. * Medical History: * Surgical History: a ppendectomy, [facility] 2000No history * Hospitalization/Major [...] ggressive nonsmoker Liv florez was born in [place]. He is and has 4 children from a first marriage. [facility] has [facility] to [facility] years. They have one [...] as needed Orally Three times a day Albuterol Sulfate HFA 108 (90 Base) MCG/ACT Aerosol Solution 1 puff as needed Inhalation every 4 hrs Taking Metoprolol Succinate ER 100 MG Tablet Extended Release 24 Hour TAKE 1 AND 1/2 TABLETS BY MOUTH EVERY DAY Taking Ibuprofen 600 MG Tablet 1 tablet with food or milk as needed Orally Three times a day Taking Albuterol Sulfate HFA 108 (90 Base) MCG/ACT Aerosol Solution 1 puff as needed Inhalation every 4 hrs DiscontinuedAlbuterol Sulfate HFA 108 (90 Base) MCG/ACT Aerosol Solution 1 puff as needed Inhalation every 6 hrs Medication List reviewed and reconciled with the patientDiscontinued Albuterol Sulfate HFA 108 (90 Base) MCG/ACT Aerosol Solution 1 puff as needed Inhalation every 6 hrs Medication List reviewed and reconciled with the patient * Allergies: N o Known Drug Allergyno[Allergies Verified] Objective: * Vitals: H t: 68, Wt: 238, BMI:36.18, BP: 137/74, HR: 58, Temp: 97.4, Wt-k.95. * Examination: G eneral Examination: GENERAL APPEARANCE: p leasant, well nourished, well developed, in no acute distress, calm and relaxed: obese: man: . HEAD: a traumatic, normocephalic. EYES: e odette, [...] obesity. RECTAL EXAM: n ot examined. MUSCULOSKELETAL: e xtremities unremarkable, no clubbing, cyanosis or edema, Decreased range of motion left third finger with edema, erythema and pain range of motion. PERIPHERAL PULSES: n ormal. NEUROLOGIC: a lert and oriented, cranial nerves 2-12 grossly intact, deep tendon reflexes 2+ symmetrical, motor strength normal upper and lower extremities, sensory exam intact. PSYCH: a lert, oriented. Assessment: * Assessment: 1. S prain and strain - T14.8XXA (Primary) N otes :X-rays of the left hand show no fracture left finger. This is a strain or sprain with the ligaments torn. He will see hand surgery tomorrow to expedite is feeling. 2 . O besity (BMI 30-39.9) - E66.9 N otes :He remains obese. We discussed diet and nutrition. We made a plaan to lose weight at a rate of 1 pound per week. 3 . B PH (benign prostatic hypertrophy) - N40.0 N otes :He has been rising from sleep once or twice a night to urinate. We discussed lifestyle modifications he could make to reduce this. 4 . M ixed hyperlipidemia - E78.2 N otes :His lipids have been stable. Comprehensive blood work with a fasting lipid profile was ordered today. 5 . H istory of depression - Z86.59 N otes :He will be monitored carefully for recurrent depression. Currently, he is doing well. 6 . M igraine without aura and without status migrainosus, not intractable - G43.009 N otes :He has infrequent migraines and none recently. He will be observed. Plan: * Treatment: 2. B PH (benign prostatic hypertrophy) L AB: PROFILE, FASTING (COMPREHENSIVE METABOLIC) L AB: PSA, TOTAL L AB: CBC w DIFF L AB: Lipid Panel 3. M ixed hyperlipidemia L AB: PROFILE, FASTING (COMPREHENSIVE METABOLIC) L AB: PSA, TOTAL L AB: CBC w DIFF L AB: Lipid Panel 4. O thers Continue Metoprolol Succinate ER Tablet Extended Release 24 Hour, 100 MG, TAKE 1 AND 1/2 TABLETS BY MOUTH EVERY DAY; C ontinue Ibuprofen Tablet, 600 MG, 1 tablet with food or milk as needed, Orally, Three times a day; C ontinue Albuterol Sulfate HFA Aerosol Solution, 108 (90 Base) MCG/ACT, 1 puff as needed, Inhalation, every 4 hrs; C ontinue Albuterol Sulfate HFA Aerosol Solution, 108 (90 Base) MCG/ACT, 1 puff as needed, Inhalation, every 6 hrs. * Procedure Codes: * Preventive Medicine: Counseling: [...] Other reason not done * Follow Up: A s Scheduled (Reason: Annual Exam) * Images: * Sign off status: Completed true * Provider: Reji Edge MD Date: 03/11/2025 Generated for Aurelia story/Danika/eTransmitting on: 03/12/2025 05:21 PM EDT History and Physical Notes * HPI (History of Present Illness) Category Sub-Category Detail Notes COVID-19 Screening Questions Have you had any new onset fever, chills, cough, congestion, sore throat, shortness of breath, muscle aches?: No Examination Category Sub-Category Detail Notes General Examination GENERAL APPEARANCE: pleasant , well nourished, well developed, in no acute distress, calm and relaxed: obese: man: HEAD: atraumatic, normocep halic EYES: eomi, perrla, [...] unremark able, no clubbing, cyanosis or edema, Decreased range of motion left third finger with edema, erythema and pain range of motion LYMPH NODES: no enlarged lymph no sanju,spleen normal RECTAL EXAM: not examined PSYCH: alert, oriented ORAL CAVITY: normal, unremarkable
--- NOTE | 2025-03-12 14:11 | MHC.OFFVIS ---
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 This injury occurred when he jammed his 4th left hand digit. Patient was seen a [facility] where he had swelling and limited range of motion at the proximal PIP joint of the left ring finger. Today patient reports that his finger was hit on the door of his car. He has pain at top of finger, at his DIP joint. Denies numbness or tingling. States that he is unable to fully straighten his finger. He is currently using a finger splint. 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 He jammed his finger while loading wood into a truck. He complains of pain & limited ROM of his ring finger. He is seen today wearing a splint. He works [employer] and says he should be able to return on light duty. [facility] Medical History (Updated 03/12/25 @ 14:53 by Krish Carney) Erectile dysfunction Arthralgia Hyperlipidemia Obesity History of headache Paroxysmal A-fib Depression GERD (gastroesophageal reflux disease) Appendicitis HTN (hypertension) Surgical History H/O colonoscopy Family History (Updated 05/08/24 @ 09:35 by NESS Boyce) Mother Lung cancer Social History (Updated 03/12/25 @ 14:13 by NESS Burkett) Alcohol intake: current Alcohol intake frequency: holidays/special occasions only Alcohol type: wine Patient Tobacco Use Status: Never used Tobacco Current occupational status: unemployed Current occupation: right hand dominant Review of Systems Const All systems reviewed & are unremarkable except as noted in HPI and below Physical Exam Const General: cooperative, healthy appearing and no acute distress Orientation/consciousness: patient oriented x3 HEENT Head: Yes normocephalic and Yes atraumatic Eyes EOM: EOMs intact bilaterally Resp Effort & Inspection: normal respiratory effort and able to speak in complete sentences Cardio Jugular venous distension: no JVD Skin General skin exam: turgor normal Rashes: no rashes Neuro General: patient oriented x3 Extrem Other: Evaluation of Left Upper Extremity: The patient is alert, oriented, and in no acute distress Neuro: Median, Ulnar, Radial nerves motor and sensory intact and sensation is normal to the tips of all digits Vascular: Cap refill brisk ROM: He can bring all his fingers closed to a fist and back into extension, except for the ring finger He has a mallet deformity of the ring finger DIP joint of ~40 degrees. No active extension at the DIP joint No locking or catching Skin: No lacerations or abrasions. General: No Erythema or evidence of infection. Radiographs: 3 views of the left hand from 03/04/25 were reviewed by me today in clinic. They show no fractures or dislocations. The ring figner DIP joint is held in ~30 degrees of flexion Psych Appearance: grossly normal Affect: normal affect Attitude: cooperative Assessment & Plan Assessment & Plan (1) Mallet deformity of left ring finger: Code(s): M20.012 - Mallet finger of left finger(s) Category: Medical Plan Assessment & Plan: 1. Left ring finger tendinous mallet finger After jamming his finger, DOI: 03/03/25 I educated him about this condition I discussed operative and non-operative treatment options He would like to try conservative treatment at this time He was fitted for a new finger spica splint, to be worn 24/7 for the next 6 weeks, that allows for PIP joint ROM and restricts DIP joint ROM. He was given a second splint so he can alternate for hygenic purposes I discussed activity modifications, he is to work on ROM exercises for his other fingers He will follow up in 6 weeks to see how he is doing Scribed for Maine Tomlinson MD by Krish Carney, medical office technologist, on 03/12/25 at 2:50 PM, EST. Coding Level of Care Code New Pt Level 4 (94205) Diagnoses Mallet deformity of left ring finger M20.012
--- OUTSIDE RECORDS SUMMARY | 2025-03-12 17:22 | XMS_ITS | Clinical Summary ---
Author Organization [facility] Address [address] [place] [address] Phone Care Team Providers Care Medical Sales Specialist Name Role Phone Byron Edge MD Primary Care Provider [phone] Allergies No known active allergies Medications No [...] Insurance MEDICARE MEDICAID - [place] Care Teams Medical Sales Specialist Relationship Specialty Start Date End Date Byron Edge MD [address] [address] PCP - General Oncology 11/14/24
--- OUTSIDE RECORDS SUMMARY | 2025-03-12 17:22 | XMS_ITS | Patient Health Record ---
Author Organization Byron Edge III, MD Address [address] [place] [address] Care Team Providers Care Machine Silk Screen Printer Name Role Phone Dr. Byron Edge III [...] 0.2 - 1.3 BLD Negative Negative - XR hand LT min 3V Reviewed date:03/06/2025 10:10:35 AM Interpretation: Performing Lab: Notes/Report: [address] [address] XRay Report Signed Patient: Carlito Babb MR#: [id number] : 1965 Acct:[id number] Age/Sex: 59 / M ADM Date: 03/04/25 Loc: HO.XRAY Attending Dr: Byron Edge MD Ordering Physician: Byron Edge MD Date of Service: 03/04/25 Procedure(s): XR hand LT min 3V Accession Number(s): [id number] cc: Byron Edge MD Reason for Exam: [...] Ashok Bradshaw MD 03/04/2025 03:19 PM EDT RP Dictated By: Ashok Bradshaw MD Signed By: <Electronically signed by Ashok Bradshaw MD in OV> 03/04/25 1519 DD/ 150 TD/TT: 03/04/25 151 Case Finisher: [address] [address] XRay Report Signed Patient: Carlito Babb MR#: [id number] : 1965 Acct:[id number] Age/Sex: 59 / M ADM Date: 03/04/25 Loc: HO.ROLANDOAY Attending Dr: Byron Edge MD Ordering Physician: Byron Edge MD Date of Service: 03/04/25 Procedure(s): XR newell d LT min 3V Accession Number(s): [id number] cc: Byron Edge MD Reason for Exam: [...] Ashok Bradshaw MD 03/04/2025 03:19 PM EDT RP Dictated By: Ashok Bradshaw MD Signed By: <Electronically signed by Ashok Bradshaw MD in OV> 03/04/25 1519 DD/ 150 TD/TT: 03/04/25 1510 Case Finisher: Complete Blood Count Auto Di ff Reviewed date:06/07/2024 03:08:17 PM Interpretation: Performing Lab:[facility], [address] [place] [id number] Notes/Report: White Blood Count 7.1 4.8-10.8 X10*3/uL [...] Panel Reviewed date:06/07/2024 03:08:17 PM Interpretation: Performing Lab:[facility], [address] [place] [phone] Notes/Report: Sodium 140 135-145 mmol/L Potassium 4.2 [...] Last Name Kely Referring Provider Speciality Internal [facility] Referred Provider Jay Jay Juarez Referred Provider Specialty Thoracic Maryellen ayaan General Notes Crissy Bowie [facility] 04/26 10:38:51 AM >ref/demo/progress note faxed to Dr Cancino office, Crissy Bowie [facility] 05/03/2024 02:59:14 PM >called Dr Cancino [...] First Name Byron Referring Provider Last Name Edge Referring Provider Speciality [facility] Referred Provider EVAN MON Referred Provider Specialty Podiatry General Notes Autumn Payne 11/07/2024 11:12:38 AM > patient is requesting an urgent appointment and asking why the referral was not sent. Patient was informed we do have to wait for the progress note to be completed in order for it to be sent. Patient was advised to go to [facility] Autumn Payne 11/13/2024 [...] > referral, progress note and Xr sent., 03/06/2025 09:21:34 AM > referral, progress note and Xr resent to Dr. Tomlinson and [facility]. Patient stated that he called this morning stating they have not received the referral. Referral Priority Routine Referral Appointment Date 03/12/2025 Medications Medication SIG (Take, Route, Frequency, Duration) [...] needed Inhalation every 6 hrs 03/04/2025 Active Immunizations Vaccine Route Administration Date [...] Status W/U Status Risk Notes Problem Hypertension (57915685) Hypertension (I10) Active confirmed His blood pressure is well controlled and no change in his medications as necessary.The value was 136/79. Problem 078065552 Mixed hyperlipidemia (E78.2) Active confirmed His lipids have been stable. Comprehensive blood work with a fasting lipid profile was ordered today. Problem 460523947 GERD without esophagitis (K21.9) Active confirmed His reflux is well controlled with vfkz-ryy-rcmje er medications and no change in his regimen is necessary. Problem Benign prostatic hypertrophy without outflow obstruction (256810509) BPH (benign prostatic hypertrophy) (N40.0) Active confirmed He has been rising from sleep once or twice a night to urinate. We discussed lifestyle modifications he could make to reduce this. Problem 099001783 Obesity (BMI 30-39.9) (E66.9) Active confirmed He remains obese. We discussed diet and nutrition. We made a plaan to lose weight at a rate of 1 pound per week. Problem 0885845 Umbilical hernia without obstruction and without gangrene [...] which are pending. Return as normal. Problem 542196837 History of depression (Z86.59) Active confirmed He will be monitored carefully for recurrent depression. Currently, he is doing well. Problem 336764301 Migraine without aura and without status migrainosus, not intractable (G43.009) Active confirmed He has infrequent migraines and none recently. He will be observed. Problem 78302052 Closed nondisplaced fracture of phalanx of toe of left foot, unspecified toe, initial encounter (S92.536T) Active confirmed An x-ray was ordered to seee if there was a fracture. Problem 220464976 Sprain and strain (T14.8XXA) Active confirmed X-rays of the left hand show no fracture left finger. This is a strain or sprain with the ligaments torn. He will see hand surgery tomorrow to expedite is feeling. Vital Signs Heart Rate 58 /min 03/11/2025 Temperature 97.4 degrees Fahrenheit 03/11/2025 Oximetry 97 % 06/07/2024 Blood pressure diastolic 74 mm Hg 03/11/2025 Height 68 in 03/11/2025 Blood pressure systolic 137 mm Hg 03/11/2025 Weight 238 lbs 03/11/2025 BMI 36.18 kg/m2 03/11/2025 Encounters Encounter Location Date Provider Diagnosis Byron Edge III, MD [address] [place] [address] [place] [address] 04/18/2024 Byron Edge Paroxysmal atrial fibrillation I48.0 ; Mixed hyperlipidemia E78.2 ; Obesity (BMI 30-39.9) E66.9 ; GERD without esophagitis K21.9 ; History of depression Z86.59 ; Umbilical hernia without obstruction and without gangrene K42.9 ; Migraine without aura and without status migrainosus, not intractable G43.009 and Hypertension I10 Byron Edge III, MD [address] [place] [address] [place] [address] 06/07/2024 Byron Edge Hypertension I10 ; Umbilical hernia without obstruction and without gangrene K42.9 ; Obesity (BMI 30-39.9) E66.9 ; History of depression Z86.59 and GERD without esophagitis K21.9 Byron Edge III, MD [address] [place] [address] [place] [address] 11/06/2024 Byron Edge Closed nondisplaced fracture of phalanx of toe of left foot, unspecified toe, initial encounter S92.882A ; Mixed hyperlipidemia E78.2 ; GERD without esophagitis K21.9 ; History of depression Z86.59 ; Umbilical hernia without obstruction and without gangrene K42.9 ; Migraine without aura and without status migrainosus, not intractable G43.009 ; Obesity (BMI 30-39.9) E66.9 and Hypertension I10 Byron Edge III, MD [address] [place] [address] [place] [address] 12/04/2024 Byron Edge Closed nondisplaced fracture of phalanx of toe of left foot, unspecified toe, initial encounter S92.912A ; Mixed hyperlipidemia E78.2 ; GERD without esophagitis K21.9 ; History of depression Z86.59 ; Umbilical hernia without obstruction and without gangrene K42.9 ; Migraine without aura and without status migrainosus, not intractable G43.009 and Obesity (BMI 30-39.9) E66.9 Byron Edge III, MD [address] [place] [address] [place] [address] 03/04/2025 Byron Edge Closed nondisplaced fracture of phalanx of toe of left foot, unspecified toe, initial encounter S92.912A ; Obesity (BMI 30-39.9) E66.9 ; GERD without esophagitis K21.9 ; History of depression Z86.59 and Migraine without aura and without status migrainosus, not intractable G43.009 Byron Edge III, MD [address] [place] [address] [place] [address] 03/11/2025 Byron Edge Obesity (BMI 30-39.9 ) E66.9 ; Sprain and strain T14.8XXA ; BPH (benign prostatic hypertrophy) N40.0 ; Mixed hyperlipidemia E78.2 ; History of depression Z86.59 and Migraine without aura and without status migrainosus, not intractable G43.009 Byron Edge III, MD [address] [place] [address] [place] [address] 06/07/2024 Byron Edge III, MD [address] [place] [address] [place] [address] 03/05/2025 Byron Edge Assessments Encounter Date Diagnosis (ICD Code) Assessment Notes Treat ment Notes Treatment Clinical Notes 04/18/2024 Mixed hyperlipidemia (ICD-10 - E78.2) His [...] Surgical he will not be necessary. 03/04/2025 Obesity (BMI 30-39.9 ) (ICD-10 - E66.9) He has gained 2pounds. We made a plan to lose weight at a rate of onee half of a pound per week through a diet restricted in fat calories and sodium combined with regular physical activity. 03/04/2025 Closed nondisplaced fracture of phalanx of toe of left foot, unspecified toe, initial encounter (ICD-10 - S92.912A) An x-ray was ordered to seee if there was a fracture. 03/11/2025 Obesity (BMI 30-39.9 ) (ICD-10 - [...] hand surgery tomorrow to expedite is feeling. 04/18/2024 Obesity (BMI 30-39.9 ) (ICD-10 - [...] K21.9) His reflux is well controlled with yovy-yee-cmurlry medications and no change in his regimen is necessary. 12/04/2024 GERD without esophagitis (ICD-10 - K21.9) His reflux is well controlled with tsbe-clf-bcgewfw medications and no change in his regimen is necessary. 03/04/2025 GERD without esophagitis (ICD-10 - K21.9) His reflux is well controlled with snwt-eoi-xizvxbj medications and no change in his regimen is necessary. 03/11/2025 BPH (benign prostati c hypertrophy) (ICD-10 - N40.0) He has been rising from sleep once or twice a night to urinate. We discussed lifestyle modifications he could make to reduce this. 04/18/2024 GERD without esophagitis (ICD-10 - K21.9) His reflux is well controlled with hfab-hhf-fparzqh medications and no change in his regimen [...] depression. Currently, he is doing well. 03/04/2025 History of depressio n (ICD-10 - Z86.59) He will be monitored carefully for recurrent depression. Currently, he is doing well. 03/11/2025 Mixed hyperlipidemia (ICD-10 - E78.2) His lipids have been stable. Comprehensive blood work with a fasting lipid profile was ordered today. 04/18/2024 History of depressio n (ICD-10 - Z86.59) He will be monitored carefully for recurrent depression. Currently, he is doing well. 06/07/2024 GERD without esophagitis (ICD-10 - K21.9) His reflux is well controlled with ucbz-zxy-upcbgcj medications and no change in his regimen [...] EKG, which are pending. Return as normal. 03/04/2025 Migraine without aur a and without status migrainosus, not intractable (ICD-10 - G43.009) He has infrequent migraines and none recently. He will be observed. 03/11/2025 History of depressio n (ICD-10 - [...] and none recently. He will be observed. 03/11/2025 Migraine without aur a and without [...] Date PROFILE, FASTING (COMPREHENSIVE METABOLI C) 03/11/2025 PROFILE, FASTING (COMPREHENSIVE METABOLI C) 02/19/2020 PROFILE, FASTING (COMPREHENSIVE METABOLI C) 04/14/2018 PROFILE, FASTING (COMPREHENSIVE METABOLI C) 04/18/2024 PROFILE, FASTING (COMPREHENSIVE METABOLI C) 09/27/2022 PROFILE, FASTING (COMPREHENSIVE METABOLI C) 04/03/2021 PROFILE, FASTING (COMPREHENSIVE METABOLI C) 11/02/2021 LIPID PANEL 11/02/2021 LIPID PANEL 02/19/2020 LIPID PANEL 04/14/2018 LIPID PANEL 09/27/2022 TSH (THYROID STIMULATING HORMONE) 2023 PSA, TOTAL 09/27/2022 PSA, TOTAL 03/11/2025 PSA, TOTAL 04/14/2018 PSA, TOTAL 04/18/2024 PSA, TOTAL SCREEN 11/02/2021 CBC w DIFF 04/03/2021 CBC w DIFF 09/27/2022 CBC w DIFF 03/11/2025 CBC w DIFF 11/02/2021 CBC w DIFF 02/19/2020 CBC w DIFF 04/14/2018 XR CHEST 2 VIEW PA & LAT 10/05/2019 CBC WITH AUTO DIFF 04/18/2024 SARS COV2 RNA RT PCR 02/19/2020 Lipid Panel 04/18/2024 Lipid Panel 04/03/2021 Lipid Panel 03/11/2025 Free T4 (Free Thyroxine) 04/18/2024 ECG 12 lead EKG 06/07/2024 XR finger LT min 2V 03/04/2025 ECG 7 day holter monitor 04/18/2024 Next Appt Details Provider Name:Byron Edge , 04/22/2025 02:00:00 PM, [address] [place] [address] , [place], [place], [address], Insurance Providers Payer Name Payer Address Payer Phone Subscriber Number Group Number Insured Name Patient Relationship to Insured Coverage Start Date Coverage End Date MEDICARE [facility] [address] [place] [address] [id number] Holley Carlito Self - patient is the insured MEDICAID [place] [address] [place] [id number] [phone] [id number] AlirioAdrian baileyro Self - patient is the insured Medical [...] Surgical History Surgery Date(Month/Year) No history appendectomy, [facility] 200 1 Hospitalization History Reason Date(Month/Year) No history
--- OUTSIDE RECORDS SUMMARY | 2025-03-12 17:22 | XMS_ITS | Patient Health Record ---
Author Organization [facility] Address [address] [place] [address] Care Team Providers Care Duck Operator Name Role Phone Evan (RETIRED) Zeeshan SANCHEZ Primary Care Provide r Unavailable Byron Martínez Unavailable [phone] Reason For Referral No Information Medications Medication [...] Problem Status W/U Status Risk Notes Problem [id number] Encounter for screening for malignant neoplasm of colon (Z12.11) Active confirmed Problem 79319839 Constipation, unspecified constipation type (K59.00) Active confirmed Plan Of Treatment Future Test Test Name Order Date COLONOSCOPY 08/08/2018 Insurance Providers Payer Name Payer Address Payer Phone Subscriber Number Group Number Insured Name Patient Relationship to Insured Coverage Start Date Coverage End Date MEDICARE OF [place] [address] [place] [address] [id number] NETTIE BABB Self - patient is the insured MEDICAID OF [facility] [address] [place] [address] [id number] NETTIE BABB Self - patient is the insured Medical (General) History Medical History History ICD Code Afib Denies [place],DM,CVA,Lung disease,renal dise ase Hypertension Surgical History Surgery Date(Month/Year) Appendectomy
== END 2025-03-12 15:16 | disposition home or self-care (01) ==
LOC: HO.HOS 14:03
PROVIDERS: PCP Internal Medicine Medical Oncology; Visit Provider Orthopaedic Surgery
DX: M20.012 Mallet finger of left finger(s) (principal)
CPT/HCPCS: 99204

== ENCOUNTER → 2025-03-12 14:03 | Outpatient (BNVA) | payer MEDICARE, MEDICAID, SELFPAY | PROVIDERS: PCP Internal Medicine Medical Oncology; Visit Provider Orthopaedic Surgery | DX: M20.012 Mallet finger of left finger(s) (principal) | CPT/HCPCS: 99202 ==

== ENCOUNTER 2025-05-15 10:20 | Outpatient (AMB) | payer MEDICARE, MEDICAID, SELFPAY ==
--- NOTE | 2025-05-15 10:50 | A.OFFVIS_ITS ---
Vital Signs 05/15/25 10:56 Height 5 ft 9 in Weight 230 lb BMI 34.0 Intake Visit Reasons: Left hand ring finger injury DOI: 03/03/25 Intake Note: Carlito 59 yr old right hand dominant male presents today for his follow up visit for his Left ring finger tendinous mallet finger after jamming his finger, DOI: 03/03/25 At his last visit he was fitted for a new finger spica splint, to be worn 10/01 for the next 6 weeks, that allows for PIP joint ROM and restricts DIP joint ROM. He was given a second splint so he can alternate for hygenic purposes and also discussed activity modifications, he is to work on ROM exercises for his other fingers. Today patient states he has worn his splint as directed. He is having a little pain and states he is experiencing numbness about 2-3 x a week even before this injury. NO EMG done. Allergies No Known Allergies Allergy (Verified 05/15/25 11:00) HPI HPI Left hand ring finger injury DOI: 03/03/25: Details: Carlito is a 59 year old right hand dominant man who returns for a left ring finger mallet finger, DOI: 03/03/25. He jammed his finger while loading wood into a truck. He says he is doing well with only some mild pain He is seen today wearing a splint, and says he has been wearing his splint as instructed. He says he removed this when in the shower however, but then clarified he only removed the splint to change to his other one. However, he does report that if he leaves it off he sees the finger fall into flexion again. I am not sure when the last time was that he had removed it. He works [employer] [facility] Medical History (Updated 03/12/25 @ 14:53 by Krish Carney) Erectile dysfunction Arthralgia Hyperlipidemia Obesity History of headache Paroxysmal A-fib Depression GERD (gastroesophageal reflux disease) Appendicitis HTN (hypertension) Surgical History H/O colonoscopy Family History (Updated 05/08/24 @ 09:35 by NESS Boyce) Mother Lung cancer Social History Alcohol intake: current Alcohol intake frequency: holidays/special occasions only Alcohol type: wine Patient Tobacco Use Status: Never used Tobacco Current occupational status: unemployed Current occupation: right hand dominant Physical Exam Vital Signs: BMI result Body Mass Index 34.0 Extrem Other: Evaluation of Left Upper Extremity: The patient is alert, oriented, and in no acute distress Neuro: Median, Ulnar, Radial nerves motor and sensory intact and sensation is normal to the tips of all digits Vascular: Cap refill brisk ROM: He can bring all his fingers closed to a fist and back into extension, except for the ring finger which had the splint holding the D IP joint in extension No visible mallet deformity today when he removes his splint Assessment & Plan Assessment & Plan (1) Mallet deformity of left ring finger: Code(s): M20.012 - Mallet finger of left finger(s) Category: Medical Plan Assessment & Plan: 1. Left ring finger tendinous mallet finger After jamming his finger, DOI: 03/03/25 Treated with Stax splinting 24 -7 for the last 6 weeks plus/minus compliance I educated him about this condition I again educated him about the need for a 6 week period Without any flexion in the D IP joint It is unclear how long he may have been keeping his finger straight. I recommend he continue 24/7 splinting for the next 3 weeks. After 3 weeks he will transition to 8 hours of daily splinting for the following 6 weeks. He may try using Popsicle sticks as an alternative if his splint is bothersome, and I explained that any splinting device he uses must allow for PIP joint ROM and restricts DIP joint ROM. I discussed activity modifications, he is to work on ROM exercises for his other fingers He will follow up prn Scribed for [place] Tomlinson MD by Krish Carney, bacteriologist medical, on 05/15/25 at 11:05 AM, EST. Coding Level of Care Code Est Pt Level 3 (01128) Diagnoses Mallet deformity of left ring finger M20.012
[2025-05-15 10:56] VITALS: BMI 34.0
--- OUTSIDE RECORDS SUMMARY | 2025-05-15 12:12 | XMS_ITS | Clinical Summary ---
Author Organization [facility] Address [address] [place] [address] Phone Care Team Providers Care Crosscutter Rolled Glass Name Role Phone Byron Edge MD Primary Care Provider [phone] Allergies No known active allergies Medications No [...] Health Maintenance Due Date Last Done Comments Colorectal Cancer Screening: Colonoscopy 1965 Hepatitis B Vaccines (1 of 3 - 19+ 3-dose series) 1984 Pneumococcal Vaccine: 50+ Years (1 of 1 - PCV) 12/31/2015 Zoster Vaccines (1 of 2) 12/31/2015 Depression Screening 06/20/2024 Cholesterol Screening (Lipid Panel) 10/10/2024 HIV Screening 10/10/2024 Hepatitis C Screening 10/10/2024 Medicare Annual Wellness Visit 10/10/2024 Social Influencers of Health Screening 10/10/2024 COVID-19 Vaccine ( - 2024- season) 2025 Influenza Vaccine (#1) 2025 4, [...] Insurance MEDICARE MEDICAID - [place] Care Teams Crosscutter Rolled Glass Relationship Specialty Start Date End Date Byron Edge MD [address] [address] PCP - General Oncology 11/14/24
== END 2025-05-15 11:20 | disposition home or self-care (01) ==
LOC: HO.HOS 10:21
PROVIDERS: PCP Internal Medicine Medical Oncology; Visit Provider Orthopaedic Surgery
DX: M20.012 Mallet finger of left finger(s) (principal)
CPT/HCPCS: 99213

== ENCOUNTER → 2025-05-15 10:20 | Outpatient (BNVA) | payer MEDICARE, MEDICAID, SELFPAY | PROVIDERS: PCP Internal Medicine Medical Oncology; Visit Provider Orthopaedic Surgery | DX: M20.012 Mallet finger of left finger(s) (principal); W23.1XXD Caught, crushed, jammed, or pinched between stationary objects, subsequent encounter | CPT/HCPCS: 99212 ==